=== PATIENT | female | born 1950 | race Caucasian/White ===

== ENCOUNTER 2017-09-20 15:53 | Emergency (ER) | payer MEDICARE ==
[2017-09-20 16:10] VITALS: BP 133/57
--- NOTE | 2017-09-20 16:45 | XRAY Preliminary Report ---
Exam: XR KNEE 4 VIEW RT IMPRESSION: 1. No acute bony abnormality. 2. Small knee effusion. [facility] SITE ID: [id number]
--- NOTE | 2017-09-20 16:51 | XRAY Report ---
EXAM: RIGHT KNEE RADIOGRAPHY EXAM DATE: 09/20/2017 04:39 PM. CLINICAL HISTORY: Pain after injury yesterday. COMPARISON: None. TECHNIQUE: 4 views. FINDINGS: Bones: Normal. No fractures or bone lesions. Joints: Small effusion. Joint compartments normal caliber without bony reactive changes. Soft Tissues: Normal. No soft tissue swelling. IMPRESSION: 1. No acute bony abnormality. 2. Small knee effusion. [facility] Referring Provider Line: [phone] SITE ID: [id number]
[2017-09-20] MEDS ORDERED: ACETAMINOPHEN 325 MG TABLET PO STA (17:24)
--- NOTE | 2017-09-20 17:27 | ED Physician Documentation ---
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 she was chasing her dog and jumped over a dithc and hurt her R knee knee is painful swollen and giving out also some pain to RUE but better now no head or neck injury applies ice cannot take NSAIDS 2/2 CKD Review of Systems Musculoskeletal: reports: Joint pain PD PAST MEDICAL HISTORY - Past Medical History Past Medical History: Yes Cardiovascular: Hypertension, Coronary artery disease, Peripheral Vascular Disease Endocrine/Autoimmune: Type 2 diabetes : Other Other Past Medical History: Stg 3 CKD - Past Surgical History Past Surgical History: No - Allergies Allergies/Adverse Reactions: Allergies Allergy/AdvReac Type Severity Reaction Status Date / Time No Known Drug Allergies Allergy Verified 09/20/17 16:06 - Social History Does the pt smoke?: No Smoking Status: Never smoker Does the pt drink ETOH?: No Does the pt have substance abuse?: No - Immunizations Immunizations are current?: Yes PD ED PE NORMAL - Vitals Vital signs reviewed: Yes - Cardiac Cardiac: RRR - Respiratory Respiratory: Clear bilaterally - Extremities Extremities: Other (RLE - _ knee effusion, no quad or patellar tendon TTP, patella NT, mild nuris jt line TTP, no medial or lateral laxity, some ACL laxity, pain and effusion limit meniscal testing) - Neuro Neuro: No motor deficit, No sensory deficit Results - Vitals Vitals: Vital Signs - 24 hr 09/20/17 16:01 Temperature 37.1 C Heart Rate 82 Respiratory 16 Rate Blood Pressure 133/57 H O2 Saturation 98 - Rads (name of study) knee Radiology: See rad report (no bony abn, + effusion) Departure - Departure Disposition: 01 Home, Self Care Clinical Impression: Knee injury Qualifiers: Encounter type: initial encounter Laterality: right Qualified Code(s): S89.91XA - Unspecified injury of right lower leg, initial encounter Condition: Good Instructions: ED Knee Injury Cruciate Ligament Follow-Up: [facility] [Provider Group] Comments: The xray is fine Based on your exam I am concerned you may have injured the anterior cruciate ligament Please wear the brace we gave you and follow up with orthopedics Ice and tylenol as needed for the pain
== END 2017-09-20 17:45 | disposition home or self-care (01) ==
LOC: ED 15:53
DX: S89.91XA Unspecified injury of right lower leg, initial encounter (principal); M25.461 Effusion, right knee; W22.09XA Striking against other stationary object, initial encounter; Y93.K1 Activity, walking an animal; I25.10 Atherosclerotic heart disease of native coronary artery without angina pectoris; E11.22 Type 2 diabetes mellitus with diabetic chronic kidney disease; I12.9 Hypertensive chronic kidney disease with stage 1 through stage 4 chronic kidney disease, or unspecified chronic kidney disease; N18.3 Chronic kidney disease, stage 3 (moderate)
CPT/HCPCS: 99282; 99283

== ENCOUNTER 2017-10-01 15:26 | Outpatient (CLI) | payer MEDICARE ==
--- NOTE | 2017-10-02 10:44 | CT Report ---
EXAM: RIGHT KNEE CT WITHOUT CONTRAST EXAM DATE: 10/01/2017 03:52 PM. CLINICAL HISTORY: POSSIBLE FRACTURE/GUIDE TO APPROPRIATE TREATMENT. COMPARISON: Right knee 4 views 09/20/2017.. TECHNIQUE: Thin-section axial images were acquired of the knee without contrast. Post-processing: Cor onal and sagittal reformats. Other: None. In accordance with CT protocol optimization, one or more of the following dose reduction techniques w ere utilized for this exam: automated exposure control, adjustment of mA and/or KV based on patient s ize, or use of iterative reconstructive technique. FINDINGS: Bones: 1. Depressed comminuted fracture lateral proximal tibia metaphysis and epiphysis posterior aspect of the lateral tibial plateau measuring 1.9 cm in AP dimension and 2.1 cm in transverse dimension with 3 mm plateau fracture depression. 2. Nondisplaced fracture anterior aspect of fibular head. Joints: The joint spaces are preserved. No calcified loose bodies. No large effusion. Musculature: Normal. No fatty atrophy. Other: Negative for ACL disruption. Small patellar recess of fluid collection. Small fluid collection gastrocnemius semimembranosus bursa 3.1 cm in height and 1.3 x 2.4 cm in transverse dimension. IMPRESSION: 1. Comminuted depressed fracture posterior aspect lateral tibial plateau epiphysis and metaphysis 1.9 cm in AP dimension and 2.1 cm in transverse dimension with 3 mm depression. 2. Nondisplaced fracture anterior fibula head. Critical result: Findings phoned to Dr. Domingo 1033 hrs. On 10/01/2017. [facility] Referring Provider Line: [phone] SITE ID: [id number]
== END 2017-10-01 15:27 | disposition home or self-care (01) ==
LOC: DI 15:26
PROVIDERS: ATTEND Orthopaedic Surgery
DX: S82.191A Other fracture of upper end of right tibia, initial encounter for closed fracture (principal); S82.831A Other fracture of upper and lower end of right fibula, initial encounter for closed fracture

== ENCOUNTER 2017-10-30 08:00 | Outpatient (CLI) | payer MEDICARE ==
[2017-10-30 17:49] LABS: ALBUMIN/GLOBULIN RATIO 1.1 (1.0-2.2); ALKALINE PHOSPHATASE 60 IU/L (42-121); ALT ALANINE AMINOTRANSFERASE 14 IU/L (10-60); AST ASPARTATE AMINOTRANSFERASE 18 IU/L (10-42); BILIRUBIN,TOTAL 0.8 mg/dL (0.2-1.0); BUN - BLOOD UREA NITROGEN 18 mg/dL (6-20); CALCIUM 9.9 mg/dL (8.5-10.3); CARBON DIOXIDE - CO2 29 mmol/L (21-32); CHLORIDE 102 mmol/L (101-111); CHOL/HDL RATIO 2.7 (<4.4); CHOLESTEROL 144 mg/dL; CREATININE 1.2 mg/dL (0.4-1.0); GFR - MDRD 45 (>89); GLUCOSE 82 mg/dL (70-100); HDL CHOLESTEROL 53 mg/dL; LDL CHOLESTEROL,CALCULATED 77 mg/dL; LDL/HDL RATIO 1.5 (<4.4); SODIUM 139 mmol/L (135-145); TOTAL PROTEIN 7.6 g/dL (6.7-8.2); VLDL CHOLESTEROL 14 mg/dL
[2017-10-30 18:37] LABS: HB2 TOTAL 14.1 g/dL; HEMOGLOBIN A1C 0.58 g/dL; HEMOGLOBIN A1C % 5.9 % (4.6-6.2)
== END 2017-10-30 08:01 | disposition home or self-care (01) ==
LOC: LAB.F 08:00
PROVIDERS: ATTEND Internal Medicine
DX: E11.40 Type 2 diabetes mellitus with diabetic neuropathy, unspecified (principal)
CPT/HCPCS: 36415; 80053; 80061; 82043; 83036; 83721; 84443

== ENCOUNTER 2018-07-11 14:04 | Outpatient (CLI) | payer MEDICARE ==
[2018-07-11 14:52] LABS: CREATININE 1.3 mg/dL (0.4-1.0)
[2018-07-11] MEDS ORDERED: IOVERSOL 320 100 ML VIAL IVP ONE ×2 (15:09→17:11)
[2018-07-11] MEDS ORDERED: IOVERSOL 320 50 ML VIAL ONE (15:09)
[2018-07-11] MEDS ORDERED: IOVERSOL 320 50 ML VIAL PO ONE (17:11)
--- NOTE | 2018-07-14 09:44 | CT Report ---
Reason: LEG CRAMPING Procedure Date: 07/11/2018 Accession Number: [id number] / [id number] Procedure: CT - ANGIO LOWER EXT W/WO - B/L CPT Code: FULL RESULT: EXAM: CT ANGIOGRAM ABDOMEN AND PELVIS, WITH BILATERAL LOWER EXTREMITY ARTERY RUNOFF EXAM DATE: 07/11/2018 03:51 PM CLINICAL HISTORY: Leg cramping. COMPARISON: LOWER EXTREMITY ANGIO BI W/WO 07/11/2018 3:36 PM. TECHNIQUE: Routine helical imaging was performed through the abdomen, pelvis and bilateral lower extremities in arterial phase. IV Contrast: 120 mL Omnipaque 350, no reaction. Reconstructions: Coronal, sagittal, and 3D MIP reconstructions were performed. In accordance with CT protocol optimization, one or more of the following dose reduction techniques were utilized for this exam: automated exposure control, adjustment of mA and/or KV based on patient size, or use of iterative reconstructive technique. FINDINGS: Vascular: The aorta at the diaphragmatic hiatus is somewhat tortuous, measuring 1.5 cm. First several images through the lower chest show significant mitral valve annulus calcification. Aorta above the level of the renal arteries is 1.5 cm. Aorta at the bifurcation is 1.3 cm. Left common iliac is 0.7 cm, right common iliac is 0.7 cm. Left common femoral is 0.5 cm, right common femoral is 0.5 cm. On the right side, the deep femoral is patent, superficial femoral is occluded for a distance of about 24.4 cm where the popliteal is reconstituted via numerous muscular branches. Below the knee, the tibioperoneal trunk is intact, arising to the anterior tibial and peroneal, posterior tibial is not seen in the upper calf. In the lower calf, a small vascular channel arises from the peroneal and supplies a faint amount of contrast material to the posterior tibial at the ankle. On the left side, atherosclerotic narrowing is present in the proximal 4-5 cm of the SFA, there is multifocal greater than 75% narrowing to the level of the mid thigh where there is occlusion of the SFA over a distance of about 9.4 cm, with reconstitution below the adductor canal via numerous muscular collaterals. Popliteal, tibioperoneal trunk have a normal appearance, there is low origin of the posterior tibial from the peroneal. In the distal third of the calf, contrast material is noted in the posterior tibial but not in the peroneal or anterior tibial. Celiac axis shows about 50% stenosis at the origin. SMA is normal. Left colic also unremarkable. 2 right renal arteries are present, no significant origin stenosis. Single left renal artery also noted, no stenosis. Abdomen: Small amount of dependent density is seen in the right lung base. Numerous gallstones are seen. Series 4 image 53. Adrenal glands, pancreas, kidneys and spleen are unremarkable. Pelvis: In the pelvis, no masses are noted. Uterus and adnexa appear age appropriate. Bones show no fractures or erosive changes. No destructive changes are noted. Extremities: In the right lower leg, there is fatty atrophy of the medial head of the gastrocnemius and soleus musculature. IMPRESSION: 1. No aneurysm, dissection or leak. 2. 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 Segmental occlusion of vessels below the knee as described. 2. On the left side, occlusion of the midportion of the SFA secondary to atherosclerotic disease. Reconstitution above the knee, the popliteal arises in the lower leg with segmental occlusions as described. 3. Visceral organs show no masses or nodules. No marked stenosis; there is at least 50% stenosis at the origin of the celiac, however. 4. Numerous gallstones.
== END 2018-07-11 14:05 | disposition home or self-care (01) ==
LOC: DI 14:04
PROVIDERS: ATTEND Family Medicine
DX: I70.201 Unspecified atherosclerosis of native arteries of extremities, right leg (principal); I77.1 Stricture of artery; K80.20 Calculus of gallbladder without cholecystitis without obstruction
CPT/HCPCS: 36415; 73706; 82565; Q9967

== ENCOUNTER 2019-07-07 13:06 | Outpatient (CLI) | payer MEDICARE ==
[2019-07-07 13:31] LABS: MUDS CUTOFF CONCENTRATIONS CUTOFF CONC BELOW:
[2019-07-07 13:41] LABS: CREATININE 1.9 mg/dL (0.4-1.0)
[2019-07-07 13:50] LABS: AMPHETAMINE SCREEN,URINE NEGATIVE (NEGATIVE); BENZODIAZEPINES SCREEN, URINE NEGATIVE (NEGATIVE); COCAINE SCREEN URINE NEGATIVE (NEGATIVE); METHADONE SCREEN, URINE POSITIVE (NEGATIVE); METHAMPHETAMINES SCREEN, URINE NEGATIVE (NEGATIVE); OPIATE SCREEN, URINE NEGATIVE (NEGATIVE); OXYCODONE SCREEN, URINE NEGATIVE (NEGATIVE); PROPOXYPHENE SCREEN, URINE NEGATIVE (NEGATIVE); TRICYCLIC ANTIDEPRESSANT,URINE NEGATIVE (NEGATIVE)
[2019-07-07 13:54] LABS: HB2 TOTAL 13.3 g/dL; HEMOGLOBIN A1C 0.88 g/dL; HEMOGLOBIN A1C % 8.2 % (4.6-6.2)
== END 2019-07-07 13:07 | disposition home or self-care (01) ==
LOC: LAB 13:06
PROVIDERS: ATTEND Family Medicine
DX: N28.9 Disorder of kidney and ureter, unspecified (principal); Z51.81 Encounter for therapeutic drug level monitoring; Z79.891 Long term (current) use of opiate analgesic
CPT/HCPCS: 36415; 80306; 82565; 83036; 84132; 84295

== ENCOUNTER 2020-02-16 15:37 | Outpatient (CLI) | payer MEDICARE ==
[2020-02-16 20:33] LABS: ALBUMIN 4.3 g/dL (3.2-5.5); ALBUMIN/GLOBULIN RATIO 1.2 (1.0-2.2); BILIRUBIN,TOTAL 0.8 mg/dL (0.2-1.0); CALCIUM 9.7 mg/dL (8.5-10.3); CREATININE 1.9 mg/dL (0.4-1.0); HEMOGLOBIN A1c% 8.5 % (4.27-6.07); TOTAL PROTEIN 7.8 g/dL (6.7-8.2)
== END 2020-02-16 15:38 | disposition home or self-care (01) ==
LOC: LAB.S 15:37
PROVIDERS: ATTEND Family Medicine
DX: Z51.81 Encounter for therapeutic drug level monitoring (principal); Z79.899 Other long term (current) drug therapy
CPT/HCPCS: 36415; 80053; 82043; 82570; 83036

== ENCOUNTER 2020-06-16 14:13 | Outpatient (CLI) | payer MEDICARE | END 2020-06-16 23:59 | disposition critical access hospital (66) | LOC: EMS 14:13 | PROVIDERS: ATTEND Emergency Medicine | DX: M79.604 Pain in right leg (principal) | CPT/HCPCS: A0425; A0427 ==

== ENCOUNTER 2020-06-16 14:53 | Inpatient (IN) | payer MEDICARE ==
[2020-06-16] MEDS ORDERED: HYDROmorphone 1 MG/ML CARPUJECT IVP STA ×2 (14:57→18:10)
[2020-06-16] MEDS ORDERED: SODIUM CHLORIDE 0.9% 1,000 ML IV STA (14:57)
[2020-06-16] MEDS ORDERED: ceFAZolin 2 GM/50 ML 2 GM/50 ML BAG IV ONE (14:58)
--- NOTE | 2020-06-16 15:00 | ED Physician Documentation ---
PD HPI LOWER EXT INJURY - Stated complaint Stated Complaint: R LEG INJ - History obtained from History obtained from: Patient - History of Present Illness PD HPI LOW EXT INJURY LOCATION: Right, Ankle Type of injury: Fall Where injury occurred: Home Timing - onset: Today - Additional information Additional information: 69-year-old woman with type 2 diabetes on an insulin pump. Not anticoagulated. She was reaching over her head in the kitchen and got dizzy, it sounds like her foot got stuck under something and she fell sustaining an isolated right ankle injury that is likely an open fracture. No other injuries. No loss of consciousness. Pain is severe despite receiving 2 mg of morphine on route. Review of Systems Ten Systems: 10 systems reviewed and negative Constitutional: reports: Reviewed and negative Throat: reports: Reviewed and negative Cardiac: reports: Reviewed and negative Respiratory: reports: Reviewed and negative PD PAST MEDICAL HISTORY - Past Medical History Past Medical History: Yes Cardiovascular: Hypertension, Coronary artery disease, Peripheral Vascular Disease Endocrine/Autoimmune: Type 2 diabetes : Other - Past Surgical History Past Surgical History: No - Present Medications Home Medications: Ambulatory Orders Medication Instructions Recorded Confirmed DULoxetine [Cymbalta] 60 mg PO DAILY 06/16/20 06/16/20 Diltiazem HCl [Diltiazem 12Hr ER] 1 tab PO DAILY 06/16/20 06/16/20 Gabapentin [Neurontin] 600 mg PO HS 06/16/20 06/16/20 Losartan/Hydrochlorothiazide 1 tab PO DAILY 06/16/20 06/16/20 [Hyzaar 100-12.5 Tablet] Methadone 5 mg PO BID 06/16/20 06/16/20 Rosuvastatin Calcium [Crestor] 40 mg PO DAILY 06/16/20 06/16/20 Spironolactone [Aldactone] 1 tab PO DAILY 06/16/20 06/16/20 clonazePAM [Clonazepam] 0.5 mg PO DAILY 06/16/20 06/16/20 traZODone [Desyrel] 1 tab PO PRN PRN 06/16/20 06/16/20 - Allergies Allergies/Adverse Reactions: Allergies Allergy/AdvReac Type Severity Reaction Status Date / Time No Known Drug Allergies Allergy Verified 06/16/20 15:01 - Social History Does the pt smoke?: No Smoking Status: Never smoker Does the pt drink ETOH?: No Does the pt have substance abuse?: No - Family History Family history: reports: Non contributory - Immunizations Immunizations are current?: Yes PD ED PE NORMAL - Vitals Vital signs reviewed: Yes - General General: Alert and oriented X 3, No acute distress - HEENT HEENT: PERRL, EOMI - Neck Neck: Supple, no meningeal sign, No bony TTP - Cardiac Cardiac: RRR, No murmur - Respiratory Respiratory: No respiratory distress, Clear bilaterally - Abdomen Abdomen: Normal bowel sounds, Soft, Non tender - Back Back: No CVA TTP, No spinal TTP - Derm Derm: Normal color, Warm and dry - Extremities Extremities: Other (There is a deformity above the right ankle that is quite tender. On the medial side there is a small laceration likely consistent with an open fracture. There is also a scrape on the medial side of the right great toe. Pedal pulses and sensation are normal.) - Neuro Neuro: Alert and oriented X 3, Normal speech Results - Vitals Vitals: Vital Signs - 24 hr 06/16/20 06/16/20 15:01 15:27 Temperature 36.5 C Heart Rate 71 70 Respiratory 16 16 Rate Blood Pressure 110/44 L 110/44 L O2 Saturation 97 99 Oxygen O2 Source Room air - EKG (time done) 1505 Rate: Rate (enter#) (74) Rhythm: NSR (w pvc) [place]: Normal Intervals: Normal OK QRS: Normal Ischemia: Non specific changes Computer interpretation: Agree with computer - Labs Labs: Laboratory Tests 06/16/20 06/16/20 06/16/20 15:15 15:15 15:15 WBC 13.1 H RBC 4.02 L Hgb 11.8 L Hct 37.3 MCV 92.8 MCH 29.4 MCHC 31.6 L RDW 14.4 Plt Count 223 MPV 9.0 PT 12.0 INR 1.1 Sodium 137 Potassium 4.1 Chloride 92 L Carbon Dioxide 26 Anion Gap 19.0 H BUN 38 H Creatinine 2.5 H Estimated GFR (MDRD) 19 L Glucose 160 H Calcium 9.7 PD MEDICAL DECISION MAKING - ED course ED course: 69-year-old woman with a ground-level fall, mechanical. She was dizzy but not syncopal. She has an open fracture of the distal right tib-fib. She was administered Ancef and tetanus. Pain was controlled with narcotics here. Spoke with Dr. Mccurdy, our on-call orthopedist who will take her to the OR today, we initially spoke around 3:35 PM. He requested that we consult the hospitalist for medical management of comorbidities and I spoke with Dr. Ryan at 3:40 PM. Note made that her kidney function is a little worse than baseline. Her baseline creatinine is about 1.9.. 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
[2020-06-16 15:21] LABS: BASOPHILS % (AUTO) 0.5 %; EOSINOPHILS % (AUTO) 0.6 %; HCT - HEMATOCRIT 37.3 % (37.0-47.0); HGB - HEMOGLOBIN 11.8 g/dL (12.0-16.0); LYMPHOCYTES % (AUTO) 38.6 %; MEAN CORPUSCULAR HEMOGLOBIN 29.4 pg (27.0-31.0); MEAN CORPUSCULAR HGB CONC 31.6 g/dL (32.0-36.0); MEAN CORPUSCULAR VOLUME 92.8 fL (81.0-99.0); MONOCYTES % (AUTO) 5.6 %; NEUTROPHILS % (AUTO) 53.9 %; PLT - PLATELET COUNT 223 10^3/uL (130-450); RED BLOOD COUNT 4.02 10^6/uL (4.20-5.40); RED CELL DISTRIBUTION WIDTH 14.4 % (12.0-15.0); WHITE BLOOD COUNT 13.1 x10^3/uL (4.8-10.8)
[2020-06-16 15:23] LABS: ABNORMAL LYMPHS % (MANUAL) 0 %; BAND NEUTROPHILS % (MANUAL) 0 %
[2020-06-16 15:28] LABS: INR 1.1 (0.8-1.2)
[2020-06-16 15:34] LABS: CALCIUM 9.7 mg/dL (8.5-10.3); CREATININE 2.5 mg/dL (0.4-1.0); POTASSIUM 4.1 mmol/L (3.5-5.0)
[2020-06-16] MEDS ORDERED: TETANUS/DIPHTHERIA/PERTUSSIS 0.5 ML SYRINGE IM ONE (15:35)
[2020-06-16 15:53] LABS: LYMPHOCYTES # (MANUAL) 4.6 10^3/uL (1.5-3.5); LYMPHOCYTES % (MANUAL) 35 %; MONOCYTES # (MANUAL) 0.4 10^3/uL (0.0-1.0); NEUTROPHILS # (MANUAL) 8.1 10^3/uL (1.5-6.6)
[2020-06-16 15:54] LABS: DIFFERENTIAL COMMENT MANUAL DIFFERENTIAL; PLATELET ESTIMATE, MANUAL NORMAL (130-450,000) (NORMAL); PLATELET MORPHOLOGY NORMAL APPEARANCE (NORMAL); RBC MORPHOLOGY (MULTIPLE) NORMAL APPEARANCE (NORMAL); WBC MORPHOLOGY (MULTIPLE) NORMAL APPEARANCE (NORMAL)
--- NOTE | 2020-06-16 15:55 | XRAY Report ---
PROCEDURE: Ankle 2 View RT INDICATIONS: Ankle Injury TECHNIQUE: 2 views of the ankle were acquired. COMPARISON: None. FINDINGS: Severely comminuted fractures of the distal tibia and fibula. There is lateral angulation of the malissa nant distal fragments. Anatomic alignment seen at the tibiotalar joint. Soft tissues: No tibiotalar joint effusion. Achilles tendon appears normal. Plantar calcaneal spurring. IMPRESSION: Severely comminuted and angulated fractures of the distal tibia and fibula. Reviewed by: Conor Narvaez MD on 06/16/2020 3:54 PM PST Approved by: Conor Narvaez MD on 06/16/2020 3:54 PM PST Station ID: [id number]
--- NOTE | 2020-06-16 16:03 | CONSULTATION NOTE ---
Referring Provider Name of Referring Provider:: Yan Mccurdy MD Consult Date: 06/16/20 Chief Complaint - Chief Complaint Chief Complaint: fall with ankle fracture History of Present Illness - Admitted From Admitted From:: Home via ER - History Obtained From Records Reviewed: [facility] History obtained from: Dr. Bar and patient Exam Limitations: none. - History of Present Illness HPI Comment/Other: This is a white female in her early 70s whose PMH is significant for hypertension, arteriosclerotic disease of the aorta, bilateral carotid stenosis as well as type 2 diabetes mellitus. She also has stage III chronic kidney disease. She has never had an VA or CHF. An Echo in 2017 showed nml LVEF, no wall motion abnormalities, mild LAE and mild . She has chronic pain syndrome and takes methadone on a regular basis to avoid opiates, and also has atrophy of her right calf. She was standing in her kitchen and reaching for something over her head. The movement of tilting her head back and looking up made her feel dizzy. Her right big toe and foot foot seem to lodge under a piece of cabinet toe kick and between the dizziness and the foot getting stuck, she could not move her leg fast enough and she fell. She had immediate pain in her right ank le and was brought to the emergency room via EMS. Initial evaluation had her at 97% saturation room air. Respirations 16. Blood pressure 110/44. Heart rate 71. She was seen by ER MD were physical exam was essentially normal with heart and lungs and abdomen but she had deformity of her left ankle. X-ray confirmed an open fracture of the distal right tib-fib. Her baseline creatinine is usually 1.3 and she is 2.5 today. Hemoglobin is 11.8. No previous hemoglobins in the chart. INR is 1.1. Random glucose 160. EKG shows sinus rhythm with PVC. Early R wave progression in the anterior leads but otherwise no acute changes. On review of systems she denies syncope, headache, focal neurological deficits. She denies chest pain, palpitations, orthopnea, edema. There is been no recent change in her cardiovascular endurance. She denies coughing, wheezing, congestions. She denies fever, chills, sore throat. Her primary care provider is Socorro Delgadillo MD at [facility] in [facility]. Office fax [phone], and the office phone number is [phone]. She was unable to come to the phone but one of her partners was button breaker , , and was able to review her office chart for me. History - Past Medical History Cardiovascular: reports: Hypertension, Peripheral Vascular Disease (bilateral carotid stenosis), Other (arteriosclerotic disease of aorta and coronary arteries seen on scans but no VA or angina) Neuro: reports: Peripheral neuropathy Endocrine/Autoimmune: reports: Type 2 diabetes (last A1c was 8.5% in February and she is due for labs) CHIEF RISK OFFICER: reports: Other () : reports: Other Musculoskeletal: reports: Chronic back pain, Other (chronic atrophy right calf) MRSA Hx?: No - Past Surgical History Ortho: reports: Other (fx of knee 2018 located above current fx ) - Family & Social History Family History Comment/Other: Mom at age 45 of a massive heart attack. Dad approximately 65 complications of diabetes. 5 (1/2) sisters that she says are all healthy without DM, HTN, HPL, CAD. 2 children. One son has neurofibromatosis. Living arrangement: At home Living Situation: With spouse/s.o. Social History Notes: From [place]. Considers herself in [facility] daughter. 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 He is 20 years older than her. She started getting worried about what would be like to take care of an elderly in [place] so [place] [id number] [place] She regrets moving back but she really misses her house in [place]. Her is in fabulous health. Better than her. She started smoking at the age of 14 and smoked about a pack a week until the age of 38. She has no history of alcohol abuse. She has no history of recreational substance abuse. - Substance History Use: Uses substance without health or social issues: NONE Abuse: Recurrent use of substance despite neg consequences: NONE Dependence: Experiences withdrawal or developed tolerances: NONE - POLST Patient has POLST: No POLST Status: Full Code Meds/Allgy - Home Medications Home Medications: Ambulatory Orders Medication Instructions Recorded Confirmed DULoxetine [Cymbalta] 60 mg PO DAILY 06/16/20 06/16/20 Diltiazem HCl [Diltiazem 12Hr ER] 1 tab PO DAILY 06/16/20 06/16/20 Gabapentin [Neurontin] 600 mg PO HS 06/16/20 06/16/20 Losartan/Hydrochlorothiazide 1 tab PO DAILY 06/16/20 06/16/20 [Hyzaar 100-12.5 Tablet] Methadone 5 mg PO BID 06/16/20 06/16/20 Rosuvastatin Calcium [Crestor] 40 mg PO DAILY 06/16/20 06/16/20 Spironolactone [Aldactone] 1 tab PO DAILY 06/16/20 06/16/20 clonazePAM [Clonazepam] 0.5 mg PO DAILY 06/16/20 06/16/20 traZODone [Desyrel] 1 tab PO PRN PRN 06/16/20 06/16/20 - Allergies Allergies/Adverse Reactions: Allergies Allergy/AdvReac Type Severity Reaction Status Date / Time No Known Drug Allergies Allergy Verified 06/16/20 15:01 Review of Systems - Constitutional Constitutional: denies: Weakness, Poor appetite, Diaphoresis, Night sweats, Weight gain, Weight loss - Eyes Eyes: denies: Pain, Irritation, Amaurosis, Blurred vision, Vision loss, Dipolpia - Ears, Nose & Throat Ears, Nose & Throat: reports: Hearing loss. denies: Hearing aids, Tinnitus, Vertigo, Nasal pain, Dentures, Sore throat - Cardiovascular Cariovascular: reports: Lightheadedness (For several weeks now. She cannot say why. She has not told her primary care provider about that yet.), Other (She has the same cardiopulmonary endurance that she has had for 2 years. No change.). denies: Irregular heart rate, Palpitations, Chest pain, Edema, Syncope, Exertional dyspnea, Decr. exercise tolerance - Respiratory Respiratory: denies: Cough, Sputum production, Wheezing, Orthopnea, SOB at rest, SOB with exertion - Gastrointestinal Gastrointestinal: reports: Other (She only eats about once a day. She said that she checked her sugars this morning and they were about 112. She did take her medications.). denies: Abdominal pain, Abdominal distention, Diarrhea, Change in bowel habits - Genitourinary Genitourinary: reports: Incontinence. denies: Dysuria, Frequency, Urgency, Flank pain, Nocturia - Musculoskeletal Musculoskeletal: reports: Other (Chronic mild joint pain of hands and feet from osteoarthritis. Mild joint pain in the right knee where she had her previous fracture and fall in 2018.) - Integumentary Integumentary: denies: Rash, Pruritis - Neurological Neurological: reports: Focal weakness (Right leg, chronic, for years), Numbness (Chronic of her feet. Pretty dense neuropathy. She has had severe pain because of neuropathy was chronic right calf shrinkage. Because of that she was on opioids, and was transitioned to methadone. Her primary care provider is gradually reducing her methadone.). denies: General weakness, Headache, Dizziness, Memory problems, Seizures - Psychiatric Psychiatric: denies: Depression, Anxiety, Suicidal Exam - Vital Signs Reviewed Vital Signs: Yes Vital Signs: Vital Signs x48h Temp Pulse Resp BP Pulse Ox 06/16/20 15:27 70 16 110/44 L 99 06/16/20 15:01 36.5 C 71 16 110/44 L 97 - Physical Exam General Appearance: positive: No acute distress, Alert, Other (Pain in her right ankle is controlled, but she is very anxious, shocked about all this and cannot believe this is happening. Very talkative, nonstop.) Eyes Bilateral: positive: PERRL, EOMI ENT: positive: Dry mucous membranes (But she says she has been eating which she always does. Nothing new.), Other (Is a dry scaling along her jawline on both sides of her face. When I ask if she has seborrhea she says no. Using a mirror she looks and realizes that her face cream has dried into a scaling type of peeling on both sides of her jaw. She does have mild seborrhea.) Neck: positive: No JVD, Carotid bruit Respiratory: positive: No respiratory distress. negative: Wheezes, Rales, Rhonchi Cardiovascular: positive: Regular rate & rhythm, Systolic murmur. negative: Gallop/S4, Friction rub Peripheral Pulses: positive: 0 (Neither foot has dorsalis pedis or posterior tibial) Abdomen: positive: Non-tender, No organomegaly, Nml bowel sounds, No distention Skin: positive: Warm, Dry, Pallor. negative: Diaphoresis Extremities: positive: Other (Severe onychomycosis both feet. Left second toenail is gone. She has index finger DIP deformities. Early hammertoe de formities both feet. The right ankle is externally rotated and the foot is lying flat on the pillow where as the right leg is in normal anterolateral position. The right great to) Neurologic/Psychiatric: positive: Oriented x3, CN's nml (2-12), Motor nml. negative: Sensation nml (Moderate loss of sensation both feet up to mid tib-fib area) Conclusion/Plan - Diagnosis Diagnosis: Right comminuted fractures of the distal tibia and fibula, severe. This is with a mechanical fall, no evidence of syncope by review of systems. With her risk factors of age, hypertension, acute kidney injury, diabetes, and s igns of peripheral vascular disease make her surgical risk calculator for score at 5.4% serious complication, 6.8% any complication. She has a high risk of needing to be discharged to a nursing or rehab facility. Prior to surgery, I would recommend hydrating her with 1 to 2 L. At this time blood pressure is controlled, she is afebrile. Routine preop antibiotics. Will monitor her glucose after surgery. Since she already has chronic pain syndrome, she may have destabilization of current pain control with the addition of this new ankle fracture. In the postoperative setting we will continue her methadone, gabapentin, losartan, diltiazem, trazodone, Cymbalta, clonazepam. - Lab Results Lab results reviewed: Yes Fish Bones: 06/16/20 15:15 06/16/20 15:15 - Diagnostic Imaging Results Diagnostic Imaging Results: positive: Final report reviewed Diagnostic Imaging Results Comments: Right ankle films show severely comminuted fracture of the distal tibia and fibula. Lateral angulation of the dominant distal fragments. Achilles tendon appears normal. Plantar calcaneal spurring seen. - EKG Results EKG Interpreted Independently: No EKG Comparison: No prior EKG EKG Findings: EKG with normal sinus rhythm, no acute ST-T wave changes. A single PVC
[2020-06-16 16:34] LABS: B. PARAPERTUSSIS- RESP PCR PAN NOT DETECTED; B. PERTUSSIS- RESP PCR PANEL NOT DETECTED; C. PNEUMONIAE- RESP PCR PANEL NOT DETECTED; CORONAVIRUS 229E-RESP PCR NOT DETECTED; CORONAVIRUS HKU1-RESP PCR NOT DETECTED; CORONAVIRUS NL63-RESP PCR NOT DETECTED; CORONAVIRUS OC43-RESP PCR NOT DETECTED; HUMAN METAPNEUMOVIRUS NOT DETECTED; INFLUENZA A- RESP PCR PANEL NOT DETECTED; INFLUENZA B - RESP PCR PANEL NOT DETECTED; M. PNEUMONIAE- RESP PCR PANEL NOT DETECTED; PARAINFLUENZA VIRUS 1 NOT DETECTED; PARAINFLUENZA VIRUS 2 NOT DETECTED; PARAINFLUENZA VIRUS 3 NOT DETECTED; PARAINFLUENZA VIRUS 4 NOT DETECTED; RHINOVIRUS/ENTEROVIRUS NOT DETECTED; RSV- RESP PCR PANEL NOT DETECTED; SARS-CoV-2 -RESP PCR PANEL NOT DETECTED
[2020-06-16] MEDS ORDERED: ROPIVACAINE 0.5% PF 20 ML AMPULE ONE (16:38)
[2020-06-16] MEDS ORDERED: MIDAZOLAM 2 MG/2 ML VIAL ONE (17:07)
[2020-06-16] MEDS ORDERED: PROPOFOL 200 MG/20 ML VIAL IVP ONE (17:07)
[2020-06-16] MEDS ORDERED: LIDOCAINE-MPF 2% 5 ML VIAL ONE (17:07)
[2020-06-16] MEDS ORDERED: fentaNYL 100 MCG/2 ML VIAL ONE (17:07)
--- NOTE | 2020-06-16 17:33 | ANESTHESIA ---
Pre-Anesthesia VS, & Labs - Diagnosis Diagnosis Right comminuted fractures of the distal tibia and fibula, severe. This is with a mechanical fall, no evidence of syncope by review of systems. With her risk factors of age, hypertension, acute kidney injury, diabetes, her surgical risk calculator for next clip score is 5.4% serious complication, 6.8% any complication. She has a high risk of needing to be discharged to a nursing or rehab facility. Prior to surgery, I would recommend hydrating her with 1 to 2 L. At this time blood pressure is controlled, she is afebrile. Routine preop antibiotics. Will monitor her glucose after surgery. Since she already has chronic pain syndrome, she may have destabilization of current pain control with the addition of this new ankle fracture. In the postoperative setting we will continue her methadone, gabapentin, losartan, diltiazem, trazodone, Cymbalta, clonazepam. - Procedure ORIF R tib/fib Vital Signs: Temp Pulse Resp BP Pulse Ox 36.5 C 78 16 124/51 L 98 06/16/20 15:01 06/16/20 17:29 06/16/20 17:29 06/16/20 17:29 06/16/20 17:29 Height: 5 ft 7 in Weight (kg): 89.3 kg Body Mass Index: 30.8 BMI Classification: Obese - NPO >8 hours - Is Patient ?: No - Lab Results Current Lab Results: Laboratory Tests 06/16/20 15:15: Sodium 137, Potassium 4.1, Chloride 92 L, Carbon Dioxide 26, Anion Gap 19.0 H, BUN 38 H, Creatinine 2.5 H, Estimated GFR (MDRD) 19 L, Glucose 160 H, Calcium 9.7 06/16/20 15:15: PT 12.0, INR 1.1 06/16/20 15:15: WBC 13.1 H, RBC 4.02 L, Hgb 11.8 L, Hct 37.3, MCV 92.8, MCH 29.4, MCHC 31.6 L, RDW 14.4, Plt Count 223, MPV 9.0, Neut # (Auto) Not Reportable, Lymph # (Auto) Not Reportable, [place] # (Auto) Not Reportable, Eos # (Auto) Not Reportable, Baso # (Auto) Not Reportable, Absolute Nucleated RBC Not Reportable, Total Counted 100, Band Neuts % (Manual) 0, Abnorm Lymph % (Manual) 0, Nucleated RBC % Not Reportable, Neutrophils # (Manual) 8.1 H, Lymphocytes # (Manual) 4.6 H, Monocytes # (Manual) 0.4, Eosinophils # (Manual) 0.0, Basophils # (Manual) 0.0, Differential Comment MANUAL DIFFERENTIAL, WBC Morphology NORMAL APPEARANCE, Platelet Estimate NORMAL (130-450,000), Platelet Morphology NORMAL APPEARANCE, RBC Morph Micro Appear NORMAL APPEARANCE Lab results reviewed: Yes Fish Bones: 06/16/20 15:15 06/16/20 15:15 Home Medications and Allergies Home Medications: Ambulatory Orders DULoxetine [Cymbalta] 60 mg PO DAILY 06/16/20 Diltiazem HCl [Diltiazem 12Hr ER] 1 tab PO DAILY 06/16/20 Gabapentin [Neurontin] 600 mg PO HS 06/16/20 Losartan/Hydrochlorothiazide [Hyzaar 100-12.5 Tablet] 1 tab PO DAILY 06/16/20 Methadone 5 mg PO BID 06/16/20 Rosuvastatin Calcium [Crestor] 40 mg PO DAILY 06/16/20 Spironolactone [Aldactone] 1 tab PO DAILY 06/16/20 clonazePAM [Clonazepam] 0.5 mg PO DAILY 06/16/20 traZODone [Desyrel] 1 tab PO PRN PRN 06/16/20 Active Medications Sodium Chloride (Normal Saline 0.9%) 1,000 mls @ 150 mls/hr IV .Q6H40M STA Stop: 06/16/20 21:36 Last Admin: 06/16/20 15:24 Dose: 150 mls/hr Documented by: DULoxetine [Cymbalta] 60 mg PO DAILY 06/16/20 Diltiazem HCl [Diltiazem 12Hr ER] 1 tab PO DAILY 06/16/20 Gabapentin [Neurontin] 600 mg PO HS 06/16/20 Losartan/Hydrochlorothiazide [Hyzaar 100-12.5 Tablet] 1 tab PO DAILY 06/16/20 Methadone 5 mg PO BID 06/16/20 Rosuvastatin Calcium [Crestor] 40 mg PO DAILY 06/16/20 Spironolactone [Aldactone] 1 tab PO DAILY 06/16/20 clonazePAM [Clonazepam] 0.5 mg PO DAILY 06/16/20 traZODone [Desyrel] 1 tab PO PRN PRN 06/16/20 Allergies/Adverse Reactions: Allergies Allergy/AdvReac Type Severity Reaction Status Date / Time No Known Drug Allergies Allergy Verified 06/16/20 15:01 Anes History & Medical History - Anesthetic History Anesthesia Complications: reports: No previous complications Family history of Anesthesia Complications: Denies Family history of Malignant Hyperthermia: Denies - Medical History Cardiovascular: reports: Hypertension, Peripheral Vascular Disease (bilateral carotid stenosis), Other (arteriosclerotic disease of aorta and coronary arteries seen on scans but no [place] or angina) Urinary: reports: Other Neuro: reports: Peripheral neuropathy Musculoskeletal: reports: Chronic back pain, Other (chronic atrophy right calf) Endocrine/Autoimmune: reports: Type 2 diabetes (last A1c was 8.5% in February and she is due for labs) Smoking Status: Former smoker (quit at 38) History of Cancer?: No - Surgical History Orthopedic: Other (fx of knee 2018 located above current fx ) Exam General: Alert, Oriented x3, Cooperative Dental: Dentures full Upper, Dentures full Lower Mouth Openin Fingerbreadth Neck Mobility: Normal Mallampati classification: II Thyromental Distance: 4-6 cm Respiratory: Lungs clear, Normal breath sounds, No respiratory distress Cardiovascular: Regular rate Neurological: Normal speech Mental/Cognitive Status: Alert/Oriented X3, Normal for patient Cognitive Status: Within normal limits Plan Anesthesia Type: General, Popliteal Block, Adductor Block Regional Block: Per Surgeon's request for Post Op pain control Consent for Procedure(s) Verified and Reviewed: Yes Code Status: Attempt Resuscitation ASA classification: 2-Mild systemic disease Is this case an emergency?: Yes
--- NOTE | 2020-06-16 18:55 | CONSULTATION NOTE ---
DATE OF SERVICE: 06/16/2020 Physician: Yan Mccurdy MD REFERRING PHYSICIAN: Ant Bar M.D., Emergency Room Department. CHIEF COMPLAINT: "My right leg hurts." HISTORY OF PRESENT ILLNESS: Yudy Zaldivar is a 69-year-old female, type 2 diabetic, with a h istory of renal insufficiency who apparently was at home on the day of her admission. She was attemp ting to reach for something overhead and had a dizzy spell. She has been getting intermittent dizzy spells now for some months. She was up on a stool at the time. She lost her balance and fell. As a result of the fall, she noted a bleeding wound in the distal right calf as well as obvious deformity in her leg. She was unable to stand or weight bear. She was taken by ambulance to [facility] where she had her injuries evaluated. She was noted to have a distal tibia-fibula shaft fra cture associated with this wound. No distal weakness or numbness, though she does have baseline wendy pheral neuropathy. The patient did not actually black out. No other injuries noted from this fall. PHYSICAL EXAMINATION: On exam today, the patient does have a medial laceration in the distal calf of the right leg. Her leg is mildly angulated, apexed medially, and externally rotated. The patient i s able to actively move her toes on command. Sensation appears to be intact or at baseline. Good c apillary filling noted. Palpable dorsalis pedis pulse. IMAGING: Review of x-rays that were taken show a slightly comminuted distal tibia-fibula shaft fract ure present. Ankle views appear to show the ankle mortise to be intact. Prior x-rays of the right knee two years ago were reviewed as well and show the minimally depressed l ateral tibia plateau fracture. It did not require any surgical intervention. ASSESSMENT: 1. Grade 1 open right distal tibia-fibula fracture. 2. Type 2 diabetes. 3. Chronic renal insufficiency. 4. History of right minimally depressed lateral tibia plateau fracture. PLAN: After the patient has been evaluated by the medical service and stabilized, we will plan on ta fely her to the operating room to do an irrigation and debridement of her laceration of her open frac ture. We will then proceed to a reduction of her fracture and we will attempt an intramedullary tibi al nailing of the fracture. We may or may not need to add a distal lock to her tibial nail or not. We would like to avoid doing any fibular stabilization if we get adequate stabilization with just the IM nail. This is partly because of where her fracture is, but also because of her diabetes and thei r propensity to be slow healing, getting postoperative infections, etc. The risks and benefits of th e surgery were explained to the patient, including infection, nonunion, malunion, delayed union, neur ovascular compromise, etc. She appears to understand these risks and wishes us to proceed with the s urgery as planned. Answers to her questions were done. The leg was marked and consent signed. TD: 06/16/2020 18:50
--- NOTE | 2020-06-16 18:56 | PROVIDER PROGRESS NOTE ---
Assessment/Plan - Problem List (1) Open fracture of tibia and fibula, shaft Qualifiers: Encounter type: initial encounter Open fracture type: open type I or II Laterality: right Qualified Code(s): S82.201B - Unspecified fracture of shaft of right tibia, initial encounter for open fracture type I or II; S82.401B - Unspecified fracture of shaft of right fibula, initial encounter for open fracture type I or II - Current Meds Current Meds: Current Medications Generic Name Dose Route Start Last Admin Trade Name Freq PRN Reason Stop Dose Admin Sodium Chloride 1,000 mls @ 150 mls/hr 06/16/20 14:57 06/16/20 18:53 Normal Saline 0.9% IV 06/16/20 21:36 Infused .Q6H40M STA Infusion - Lab Result Fish Bone Diagrams: 06/16/20 15:15 06/16/20 15:15 - Other Other Results/Comments: Full note dictated. Patient ready to proceed to OR. Consent signed. Leg marked. - Additional Planning My Orders: My Active Orders 06/16/20 18:16 OR C-Arm Procedure [FL] Routine Objective Vital Signs: Vital Signs - 24 hr 06/16/20 06/16/20 06/16/20 15:01 15:27 16:25 Temperature 36.5 C Heart Rate 71 70 68 Respiratory 16 16 16 Rate Blood Pressure 110/44 L 110/44 L 109/37 L O2 Saturation 97 99 95 06/16/20 06/16/20 06/16/20 17:29 18:17 18:53 Temperature Heart Rate 78 71 Respiratory 16 16 Rate Blood Pressure 124/51 L 118/49 L 117/27 L O2 Saturation 98 95 Oxygen O2 Source Room air I&O (Last 24 Hrs): Intake and Output Totals x24h 06/14/20 06/15/20 06/16/20 23:59 23:59 23:59 Intake Total 572.5 Balance 572.5 - Results Results: Laboratory Results WBC 13.1 x10^3/uL (4.8-10.8) H 06/16/20 15:15 RBC 4.02 10^6/uL (4.20-5.40) L 06/16/20 15:15 Hgb 11.8 g/dL (12.0-16.0) L 06/16/20 15:15 Hct 37.3 % (37.0-47.0) 06/16/20 15:15 MCV 92.8 fL (81.0-99.0) 06/16/20 15:15 MCH 29.4 pg (27.0-31.0) 06/16/20 15:15 MCHC 31.6 g/dL (32.0-36.0) L 06/16/20 15:15 RDW 14.4 % (12.0-15.0) 06/16/20 15:15 Plt Count 223 10^3/uL (130-450) 06/16/20 15:15 MPV 9.0 fL (7.9-10.8) 06/16/20 15:15 Neut # (Auto) Not Reportable 06/16/20 15:15 Lymph # (Auto) Not Reportable 06/16/20 15:15 [place] # (Auto) Not Reportable 06/16/20 15:15 Eos # (Auto) Not Reportable 06/16/20 15:15 Baso # (Auto) Not Reportable 06/16/20 15:15 Absolute Nucleated RBC Not Reportable 06/16/20 15:15 Total Counted 100 06/16/20 15:15 Band Neuts % (Manual) 0 % (0-10) 06/16/20 15:15 Abnorm Lymph % (Manual) 0 % 06/16/20 15:15 Nucleated RBC % Not Reportable 06/16/20 15:15 Neutrophils # (Manual) 8.1 10^3/uL (1.5-6.6) H 06/16/20 15:15 Lymphocytes # (Manual) 4.6 10^3/uL (1.5-3.5) H 06/16/20 15:15 Monocytes # (Manual) 0.4 10^3/uL (0.0-1.0) 06/16/20 15:15 Eosinophils # (Manual) 0.0 10^3/uL (0-0.7) 06/16/20 15:15 Basophils # (Manual) 0.0 10^3/uL (0-0.1) 06/16/20 15:15 Differential Comment MANUAL DIFFERENTIAL 06/16/20 15:15 WBC Morphology NORMAL APPEARANCE (NORMAL) 06/16/20 15:15 Platelet Estimate NORMAL (130-450,000) (NORMAL) 06/16/20 15:15 Platelet Morphology NORMAL APPEARANCE (NORMAL) 06/16/20 15:15 RBC Morph Micro Appear NORMAL APPEARANCE (NORMAL) 06/16/20 15:15 PT 12.0 secs (9.9-12.6) 06/16/20 15:15 INR 1.1 (0.8-1.2) 06/16/20 15:15 Sodium 137 mmol/L (135-145) 06/16/20 15:15 Potassium 4.1 mmol/L (3.5-5.0) 06/16/20 15:15 Chloride 92 mmol/L (101-111) L 06/16/20 15:15 Carbon Dioxide 26 mmol/L (21-32) 06/16/20 15:15 Anion Gap 19.0 (6-13) H 06/16/20 15:15 BUN 38 mg/dL (6-20) H 06/16/20 15:15 Creatinine 2.5 mg/dL (0.4-1.0) H 06/16/20 15:15 Estimated GFR (MDRD) 19 (>89) L 06/16/20 15:15 Glucose 160 mg/dL (70-100) H 06/16/20 15:15 Calcium 9.7 mg/dL (8.5-10.3) 06/16/20 15:15 Nasal Adenovirus (PCR) NOT DETECTED 06/16/20 15:35 Nasal B. parapertussis DNA (PCR) NOT DETECTED 06/16/20 15:35 Nasal Coronavir 229E PCR NOT DETECTED 06/16/20 15:35 Nasal Coronavir HKU1 PCR NOT DETECTED 06/16/20 15:35 Nasal Coronavir NL63 PCR NOT DETECTED 06/16/20 15:35 Nasal Coronavir OC43 PCR NOT DETECTED 06/16/20 15:35 Nasal Enterovir/Rhinovir PCR NOT DETECTED 06/16/20 15:35 Nasal Influenza B PCR NOT DETECTED 06/16/20 15:35 Nasal Influenza A PCR NOT DETECTED 06/16/20 15:35 Nasal Parainfluen 1 PCR NOT DETECTED 06/16/20 15:35 Nasal Parainfluen 2 PCR NOT DETECTED 06/16/20 15:35 Nasal Parainfluen 3 PCR NOT DETECTED 06/16/20 15:35 Nasal Parainfluen 4 PCR NOT DETECTED 06/16/20 15:35 Nasal RSV (PCR) NOT DETECTED 06/16/20 15:35 Nasal B.pertussis DNA PCR NOT DETECTED 06/16/20 15:35 Nasal C.pneumoniae (PCR) NOT DETECTED 06/16/20 15:35 Ceferino Human Metapneumo PCR NOT DETECTED 06/16/20 15:35 Nasal M.pneumoniae (PCR) NOT DETECTED 06/16/20 15:35 Nasal SARS-CoV-2 (PCR) NOT DETECTED 06/16/20 15:35
[2020-06-16] MEDS ORDERED: DEXAMETHASONE 4 MG/ML VIAL ONE (19:26)
[2020-06-16] MEDS ORDERED: GLYCOPYRROLATE 1 MG/5 ML VIAL ONE (19:30)
[2020-06-16] MEDS ORDERED: ACETAMINOPHEN 1,000 MG/100 ML 100 ML IV ONE (19:38)
[2020-06-16] MEDS ORDERED: PHENYLEPHRINE 10 MG/ML VIAL ONE (19:52)
[2020-06-16] MEDS ORDERED: BUPIVACAINE 0.25% PF 30 ML VIAL SUBQ ONE ×2 (20:53)
[2020-06-16] MEDS ORDERED: BUPIVACAINE 0.25% PF 30 ML VIAL ONE (21:02)
[2020-06-16] MEDS ORDERED: LACTATED RINGERS 1,000 ML IV ONE (21:06)
[2020-06-16] MEDS ORDERED: PROCHLORPERAZINE 10 MG/2 ML VIAL IVP PRN (21:07)
[2020-06-16] MEDS ORDERED: SENNA 8.6 MG TABLET PO PRN (21:07)
[2020-06-16] MEDS ORDERED: DOCUSATE SODIUM 100 MG CAPSULE PO PRN (21:07)
[2020-06-16] MEDS ORDERED: SODIUM CHLORIDE FLUSH 0.9% 10 ML SYRINGE IVP PRN (21:07)
[2020-06-16] MEDS ORDERED: MORPHINE 2 MG/ML CARPUJECT IVP PRN ×2 (21:07→21:26)
[2020-06-16] MEDS ORDERED: LIDOCAINE-PF 2% 10 ML AMP SUBQ ONE (21:09)
[2020-06-16] MEDS ORDERED: ATROPINE ABBOJECT 1 MG/10 ML SYRINGE IVP PRN (21:26)
[2020-06-16] MEDS ORDERED: ONDANSETRON 4 MG/2 ML VIAL IVP PRN (21:26)
[2020-06-16] MEDS ORDERED: fentaNYL 100 MCG/2 ML VIAL IVP PRN (21:26)
[2020-06-16] MEDS ORDERED: ePHEDrine 50 MG/ML VIAL IVP PRN (21:26)
[2020-06-16] MEDS ORDERED: NALOXONE 0.4 MG/ML VIAL IVP PRN (21:26)
[2020-06-16] MEDS ORDERED: HYDROmorphone 0.5 MG/0.5 ML SYRINGE IVP PRN (21:26)
[2020-06-16] MEDS ORDERED: METOCLOPRAMIDE 10 MG/2 ML VIAL IVP PRN (21:26)
--- NOTE | 2020-06-16 21:33 | ANESTHESIA POST OP EVALUATION ---
Anesthesia Post Eval - Post Anesthesia Eval Vitals: Last Vital Signs Temp 36.5 C 06/16/20 15:01 Pulse 71 06/16/20 18:17 Resp 16 06/16/20 18:17 BP 117/27 L 06/16/20 18:53 Pulse Ox 95 06/16/20 18:17 CV Function Including HR & BP: positive: Stable Pain Control: positive: Satisfactory Nausea & Vomiting: positive: Negative Mental Status: positive: Baseline Respiratory Status: Airway Patent Hydration Status: Satisfactory Anesthesia Complications: positive: None
[2020-06-16] MEDS: SODIUM CHLORIDE 0.9% 1,000 ML IV SCH (21:47)
[2020-06-16] MEDS: ceFAZolin 2 GM/50 ML 2 GM/50 ML BAG IV SCH (21:49)
--- NOTE | 2020-06-16 21:58 | OPERATIVE REPORT ---
DATE OF SERVICE: 06/16/2020 Physician: Yan Mccurdy MD PREOPERATIVE DIAGNOSIS: Grade 1 open right distal tibial and fibular shaft fractures. POSTOPERATIVE DIAGNOSIS: Grade 1 open right distal tibial and fibular shaft fractures. PROCEDURE PERFORMED: Irrigation and debridement of open fracture; intramedullary tibial nailing of f racture with 1 distal locking screw. SURGEON: Yan Mccurdy MD ANESTHESIA: General. DESCRIPTION OF PROCEDURE: The patient was taken to the operating room from the Emergency Room on the evening of 06/16/2020 where she was placed under a general anesthetic without any complications. We placed a thigh pneumatic tourniquet on the right leg, but did not inflate it during our case. We th en prepped and draped the leg free in the usual fashion for our procedure. We incised the skin edges of the small laceration anteromedially in the distal calf overlying her distal tibia fracture. Minim al additional debridement was necessary from the wound. We then copiously irrigated the wound with p ulse lavage. A total of 2000 mL of sterile saline was utilized. Next, we then directed our attentio n to the fracture fixation. Placing the leg on a metal triangle to flex the hip and flex the knee, we had access to the proximal tibia, just medial to the tibial tubercle. This is where we placed a longitudinal skin incision. Us ing this is our start point, we then used a pointed awl to perforate the anterior tibial cortex. Thi s was then followed by a bent ball-tip guide, which was advanced manually down the tibial shaft and d own past the fracture into the distal tibial fragment. Fluoroscopic view in AP and lateral projectio n confirmed the intraosseous location and depth of our ball-tip guide into the distal fragment. Sati sfied with this, we then proceeded to sequentially ream the tibial shaft, starting with a 9 mm end-cu tting flexible reamer. This was then advanced in 1 mm increments up to a total of an 11 mm flexible reamer. At this point, we measured, using our ball-tip guide as a reference, and determined the best nail for us would to be a 10 mm x 32 cm intramedullary nail. This selected nail was then placed on the outrigger/alignment guide. We then proceeded to drive the nail home with the leg in a reduced po sition, care making sure that we had the rotation of the fracture satisfactory. Fluoroscopically, we noted that the nail placement was satisfactory across the fracture and into the distal tibial fragme nt. Fracture appeared to be out to length and the rotation appeared to be satisfactory as well. At this point, we decided to put in one distal locking screw, since there was such a good interferenc e fit of the tibial nail with the tibia shaft. Making a small skin incision anterolaterally over the distal most hole in our tibial nail, we then proceeded to drill bicortically through the distal hole of our nail in followed up with the appropriate length 5 x 42.5 mm length distal locking screw. Thi s was inserted by hand. Fluoroscopic views of the distal portion of the tibia showed the distal lock ing screw to be bicortical and through the distal hole of our nail. It also showed the fracture of t he tibia to be essentially out to length and in good alignment. Finally, AP and lateral projections of the proximal tibia showed the tibial nail to be well seated and within the tibia. We then irrigated the wounds out thoroughly with saline. We closed the proximal wound using buried s imple stitches of 3-0 Vicryl to close the subcutaneous tissues, followed by skin dannielle to approxima te the two surgical incision sites. One stitch was placed over the original open wound to keep the w ound from a gaping open. We then dressed the wounds using Xeroform gauze, 4 x 4's, Mansi, and Emanuel wr aps. The patient was then awoken from her anesthetic and taken to the recovery room in satisfactory condition. ESTIMATED BLOOD LOSS: 150 mL. REPLACEMENT: 1200 mL of crystalloid. INTRAOPERATIVE COMPLICATIONS: None. PLAN: The patient may be up weightbearing as tolerated on this extremity. TD: 06/16/2020 21:35
[2020-06-16] MEDS ORDERED: LACTATED RINGERS 1,000 ML IV SCH (22:00)
[2020-06-17] MEDS ORDERED: LACTATED RINGERS 1,000 ML IV ONE (00:12)
[2020-06-17 00:56] LABS: HGB - HEMOGLOBIN 9.6 g/dL (12.0-16.0)
[2020-06-17] MEDS: SODIUM CHLORIDE FLUSH 0.9% 10 ML SYRINGE IVP SCH ×4 (01:10→23:47)
[2020-06-17] MEDS: ACETAMINOPHEN 325 MG TABLET PO PRN ×2 (01:11→23:44)
[2020-06-17 05:07] LABS: BASOPHILS % (AUTO) 0.2 %; HCT - HEMATOCRIT 29.2 % (37.0-47.0); HGB - HEMOGLOBIN 8.8 g/dL (12.0-16.0); LYMPHOCYTES # (AUTO) 2.6 10^3/uL (1.5-3.5); LYMPHOCYTES % (AUTO) 21.7 %; MEAN CORPUSCULAR HEMOGLOBIN 28.9 pg (27.0-31.0); MEAN CORPUSCULAR HGB CONC 30.1 g/dL (32.0-36.0); MEAN CORPUSCULAR VOLUME 96.1 fL (81.0-99.0); MEAN PLATELET VOLUME 9.8 fL (7.9-10.8); MONOCYTES # (AUTO) 0.4 10^3/uL (0.0-1.0); MONOCYTES % (AUTO) 3.7 %; NEUTROPHILS # (AUTO) 8.7 10^3/uL (1.5-6.6); NEUTROPHILS % (AUTO) 73.8 %; PLT - PLATELET COUNT 170 10^3/uL (130-450); RED BLOOD COUNT 3.04 10^6/uL (4.20-5.40); RED CELL DISTRIBUTION WIDTH 14.4 % (12.0-15.0); WHITE BLOOD COUNT 11.8 x10^3/uL (4.8-10.8)
[2020-06-17 05:21] LABS: CALCIUM 8.3 mg/dL (8.5-10.3); CREATININE 2.3 mg/dL (0.4-1.0); POTASSIUM 4.7 mmol/L (3.5-5.0)
[2020-06-17] MEDS: ceFAZolin 2 GM/50 ML 2 GM/50 ML BAG IV SCH (06:54)
[2020-06-17] MEDS ORDERED: INSULIN ASPART 300 UNIT/3 ML PEN SUBQ ONE (07:33)
[2020-06-17] MEDS ORDERED: SPIRONOLACTONE 25 MG TABLET PO SCH ×2 (09:00→10:38)
[2020-06-17] MEDS ORDERED: LOSARTAN 50 MG TABLET PO SCH ×2 (09:00→10:38)
[2020-06-17] MEDS ORDERED: diltiaZEM CD 120 MG CAPSULE PO SCH (09:00)
--- NOTE | 2020-06-17 09:01 | XRAY Report ---
PROCEDURE: OR C-Arm Procedure INDICATIONS: TIBIAL NAILING TECHNIQUE: 4 spot fluoroscopic intraoperative views COMPARISON: None. FINDINGS: Spot fluoroscopic intraoperative views demonstrating internal fixation of the tibial fracture with in tramedullary ria and screw fixation. Hardware appears intact. Expected intraoperative alignment. Fibu lar fracture also noted. Reviewed by: Conor Narvaez MD on 06/17/2020 9:00 AM [facility] Approved by: Conor Narvaez MD on 06/17/2020 9:00 AM [facility] Station ID: [id number]
[2020-06-17] MEDS: diltiaZEM CD 120 MG CAPSULE PO SCH (10:08)
[2020-06-17] MEDS: INSULIN ASPART 300 UNIT/3 ML PEN SUBQ SCH ×4 (10:09→21:13)
[2020-06-17] MEDS: DULoxetine 30 MG CAPSULE PO SCH (10:24)
[2020-06-17] MEDS: ASPIRIN 325 MG TABLET PO SCH ×2 (10:24→16:52)
[2020-06-17] MEDS: METHADONE 5 MG TABLET PO SCH ×2 (10:25→20:58)
[2020-06-17] MEDS: clonazePAM 0.5 MG TABLET PO PRN (10:47)
[2020-06-17 10:49] LABS: HCT - HEMATOCRIT 29.4 % (37.0-47.0); HGB - HEMOGLOBIN 9.2 g/dL (12.0-16.0); MEAN CORPUSCULAR HEMOGLOBIN 29.5 pg (27.0-31.0); MEAN CORPUSCULAR HGB CONC 31.3 g/dL (32.0-36.0); MEAN CORPUSCULAR VOLUME 94.2 fL (81.0-99.0); MEAN PLATELET VOLUME 9.8 fL (7.9-10.8); RED BLOOD COUNT 3.12 10^6/uL (4.20-5.40); RED CELL DISTRIBUTION WIDTH 14.4 % (12.0-15.0); WHITE BLOOD COUNT 16.5 x10^3/uL (4.8-10.8)
[2020-06-17] MEDS: SODIUM CHLORIDE 0.9% 1,000 ML IV SCH ×2 (13:09→22:47)
--- NOTE | 2020-06-17 13:46 | PROVIDER PROGRESS NOTE ---
Subjective - Prog Note Date Prog Note Date: 06/17/20 Prog Note Time: 13:43 - Subjective Pt reports feeling: Improved Objective - Vital Signs/Intake & Output Vital Signs: Vital Signs x48h Temp Pulse Pulse Pulse Resp BP BP 06/17/20 11:28 37.2 C 110 H 18 140/50 H 06/17/20 10:50 108 H 95 140/50 H 06/17/20 07:39 36.8 C 80 16 115/36 L BP Pulse Ox 06/17/20 11:28 96 06/17/20 10:50 127/45 L 06/17/20 07:39 97 Intake & Output: Intake & Output 06/14/20 06/15/20 06/16/20 06/17/20 23:59 23:59 23:59 23:59 Intake Total 622.5 2530.000 Output Total 650 Balance 622.5 1880.000 - Lab Results Fish Bones: 06/17/20 10:40 06/17/20 04:33 Other Labs: Lab Results x24hrs 06/17/20 06/17/20 06/17/20 Range/Units 10:55 10:40 10:40 WBC 16.5 H (4.8-10.8) x10^3/uL RBC 3.12 L (4.20-5.40) 10^6/uL Hgb 9.2 L (12.0-16.0) g/dL Hct 29.4 L (37.0-47.0) % MCV 94.2 (81.0-99.0) fL MCH 29.5 (27.0-31.0) pg MCHC 31.3 L (32.0-36.0) g/dL RDW 14.4 (12.0-15.0) % Plt Count 191 (130-450) 10^3/uL MPV 9.8 (7.9-10.8) fL Neut # (Auto) Lymph # (Auto) Roane # (Auto) Eos # (Auto) Baso # (Auto) Absolute Nucleated RBC Total Counted Band Neuts % (Manual) (0 - 10) % Abnorm Lymph % (Manual) % Nucleated RBC % Neutrophils # (Manual) (1.5-6.6) 10^3/uL Lymphocytes # (Manual) (1.5-3.5) 10^3/uL Monocytes # (Manual) (0.0-1.0) 10^3/uL Eosinophils # (Manual) (0-0.7) 10^3/uL Basophils # (Manual) (0-0.1) 10^3/uL Differential Comment WBC Morphology (NORMAL) Platelet Estimate (NORMAL) Platelet Morphology (NORMAL) RBC Morph Micro Appear (NORMAL) PT (9.9-12.6) secs INR (0.8-1.2) Sodium (135-145) mmol/L Potassium (3.5-5.0) mmol/L Chloride (101-111) mmol/L Carbon Dioxide (21-32) mmol/L Anion Gap (6-13) BUN (6-20) mg/dL Creatinine (0.4-1.0) mg/dL Estimated GFR (MDRD) (>89) Glucose (70-100) mg/dL Calcium (8.5-10.3) mg/dL Nasal Adenovirus (PCR) Nasal B. parapertussis DNA (PCR) Nasal Coronavir 229E PCR Nasal Coronavir HKU1 PCR Nasal Coronavir NL63 PCR Nasal Coronavir OC43 PCR Nasal Enterovir/Rhinovir PCR Nasal Influenza B PCR Nasal Influenza A PCR Nasal Parainfluen 1 PCR Nasal Parainfluen 2 PCR Nasal Parainfluen 3 PCR Nasal Parainfluen 4 PCR Nasal RSV (PCR) Nasal B.pertussis DNA PCR Nasal C.pneumoniae (PCR) Ceferino Human Metapneumo PCR Nasal M.pneumoniae (PCR) Nasal SARS-CoV-2 (PCR) Blood Type A POSITIVE Blood Type Recheck A POSITIVE Antibody Screen NEGATIVE 06/17/20 06/17/20 06/17/20 Range/Units 04:33 04:33 00:48 WBC 11.8 H (4.8-10.8) x10^3/uL RBC 3.04 L (4.20-5.40) 10^6/uL Hgb 8.8 L 9.6 L (12.0-16.0) g/dL Hct 29.2 L 32.0 L (37.0-47.0) % MCV 96.1 (81.0-99.0) fL MCH 28.9 (27.0-31.0) pg MCHC 30.1 L (32.0-36.0) g/dL RDW 14.4 (12.0-15.0) % Plt Count 170 (130-450) 10^3/uL MPV 9.8 (7.9-10.8) fL Neut # (Auto) 8.7 H Lymph # (Auto) 2.6 Roane # (Auto) 0.4 Eos # (Auto) 0.0 Baso # (Auto) 0.0 Absolute Nucleated RBC 0.00 Total Counted Band Neuts % (Manual) (0 - 10) % Abnorm Lymph % (Manual) % Nucleated RBC % 0.0 Neutrophils # (Manual) (1.5-6.6) 10^3/uL Lymphocytes # (Manual) (1.5-3.5) 10^3/uL Monocytes # (Manual) (0.0-1.0) 10^3/uL Eosinophils # (Manual) (0-0.7) 10^3/uL Basophils # (Manual) (0-0.1) 10^3/uL Differential Comment WBC Morphology (NORMAL) Platelet Estimate (NORMAL) Platelet Morphology (NORMAL) RBC Morph Micro Appear (NORMAL) PT (9.9-12.6) secs INR (0.8-1.2) Sodium 132 L (135-145) mmol/L Potassium 4.7 (3.5-5.0) mmol/L Chloride 98 L (101-111) mmol/L Carbon Dioxide 22 (21-32) mmol/L Anion Gap 12.0 (6-13) BUN 34 H (6-20) mg/dL Creatinine 2.3 H (0.4-1.0) mg/dL Estimated GFR (MDRD) 21 L (>89) Glucose 305 H (70-100) mg/dL Calcium 8.3 L (8.5-10.3) mg/dL Nasal Adenovirus (PCR) Nasal B. parapertussis DNA (PCR) Nasal Coronavir 229E PCR Nasal Coronavir HKU1 PCR Nasal Coronavir NL63 PCR Nasal Coronavir OC43 PCR Nasal Enterovir/Rhinovir PCR Nasal Influenza B PCR Nasal Influenza A PCR Nasal Parainfluen 1 PCR Nasal Parainfluen 2 PCR Nasal Parainfluen 3 PCR Nasal Parainfluen 4 PCR Nasal RSV (PCR) Nasal B.pertussis DNA PCR Nasal C.pneumoniae (PCR) Ceferino Human Metapneumo PCR Nasal M.pneumoniae (PCR) Nasal SARS-CoV-2 (PCR) Blood Type Blood Type Recheck Antibody Screen 06/16/20 06/16/20 06/16/20 Range/Units 15:35 15:15 15:15 WBC (4.8-10.8) x10^3/uL RBC (4.20-5.40) 10^6/uL Hgb (12.0-16.0) g/dL Hct (37.0-47.0) % MCV (81.0-99.0) fL MCH (27.0-31.0) pg MCHC (32.0-36.0) g/dL RDW (12.0-15.0) % Plt Count (130-450) 10^3/uL MPV (7.9-10.8) fL Neut # (Auto) Lymph # (Auto) Roane # (Auto) Eos # (Auto) Baso # (Auto) Absolute Nucleated RBC Total Counted Band Neuts % (Manual) (0 - 10) % Abnorm Lymph % (Manual) % Nucleated RBC % Neutrophils # (Manual) (1.5-6.6) 10^3/uL Lymphocytes # (Manual) (1.5-3.5) 10^3/uL Monocytes # (Manual) (0.0-1.0) 10^3/uL Eosinophils # (Manual) (0-0.7) 10^3/uL Basophils # (Manual) (0-0.1) 10^3/uL Differential Comment WBC Morphology (NORMAL) Platelet Estimate (NORMAL) Platelet Morphology (NORMAL) RBC Morph Micro Appear (NORMAL) PT 12.0 (9.9-12.6) secs INR 1.1 (0.8-1.2) Sodium 137 (135-145) mmol/L Potassium 4.1 (3.5-5.0) mmol/L Chloride 92 L (101-111) mmol/L Carbon Dioxide 26 (21-32) mmol/L Anion Gap 19.0 H (6-13) BUN 38 H (6-20) mg/dL Creatinine 2.5 H (0.4-1.0) mg/dL Estimated GFR (MDRD) 19 L (>89) Glucose 160 H (70-100) mg/dL Calcium 9.7 (8.5-10.3) mg/dL Nasal Adenovirus (PCR) NOT DETECTED Nasal B. parapertussis DNA (PCR) NOT DETECTED Nasal Coronavir 229E PCR NOT DETECTED Nasal Coronavir HKU1 PCR NOT DETECTED Nasal Coronavir NL63 PCR NOT DETECTED Nasal Coronavir OC43 PCR NOT DETECTED Nasal Enterovir/Rhinovir PCR NOT DETECTED Nasal Influenza B PCR NOT DETECTED Nasal Influenza A PCR NOT DETECTED Nasal Parainfluen 1 PCR NOT DETECTED Nasal Parainfluen 2 PCR NOT DETECTED Nasal Parainfluen 3 PCR NOT DETECTED Nasal Parainfluen 4 PCR NOT DETECTED Nasal RSV (PCR) NOT DETECTED Nasal B.pertussis DNA PCR NOT DETECTED Nasal C.pneumoniae (PCR) NOT DETECTED Ceferino Human Metapneumo PCR NOT DETECTED Nasal M.pneumoniae (PCR) NOT DETECTED Nasal SARS-CoV-2 (PCR) NOT DETECTED Blood Type Blood Type Recheck Antibody Screen 06/16/20 Range/Units 15:15 WBC 13.1 H (4.8-10.8) x10^3/uL RBC 4.02 L (4.20-5.40) 10^6/uL Hgb 11.8 L (12.0-16.0) g/dL Hct 37.3 (37.0-47.0) % MCV 92.8 (81.0-99.0) fL MCH 29.4 (27.0-31.0) pg MCHC 31.6 L (32.0-36.0) g/dL RDW 14.4 (12.0-15.0) % Plt Count 223 (130-450) 10^3/uL MPV 9.0 (7.9-10.8) fL Neut # (Auto) Not Reportable Lymph # (Auto) Not Reportable Roane # (Auto) Not Reportable Eos # (Auto) Not Reportable Baso # (Auto) Not Reportable Absolute Nucleated RBC Not Reportable Total Counted 100 Band Neuts % (Manual) 0 (0 - 10) % Abnorm Lymph % (Manual) 0 % Nucleated RBC % Not Reportable Neutrophils # (Manual) 8.1 H (1.5-6.6) 10^3/uL Lymphocytes # (Manual) 4.6 H (1.5-3.5) 10^3/uL Monocytes # (Manual) 0.4 (0.0-1.0) 10^3/uL Eosinophils # (Manual) 0.0 (0-0.7) 10^3/uL Basophils # (Manual) 0.0 (0-0.1) 10^3/uL Differential Comment MANUAL DIFFERENTIAL WBC Morphology NORMAL APPEARANCE (NORMAL) Platelet Estimate NORMAL (130-450,000) (NORMAL) Platelet Morphology NORMAL APPEARANCE (NORMAL) RBC Morph Micro Appear NORMAL APPEARANCE (NORMAL) PT (9.9-12.6) secs INR (0.8-1.2) Sodium (135-145) mmol/L Potassium (3.5-5.0) mmol/L Chloride (101-111) mmol/L Carbon Dioxide (21-32) mmol/L Anion Gap (6-13) BUN (6-20) mg/dL Creatinine (0.4-1.0) mg/dL Estimated GFR (MDRD) (>89) Glucose (70-100) mg/dL Calcium (8.5-10.3) mg/dL Nasal Adenovirus (PCR) Nasal B. parapertussis DNA (PCR) Nasal Coronavir 229E PCR Nasal Coronavir HKU1 PCR Nasal Coronavir NL63 PCR Nasal Coronavir OC43 PCR Nasal Enterovir/Rhinovir PCR Nasal Influenza B PCR Nasal Influenza A PCR Nasal Parainfluen 1 PCR Nasal Parainfluen 2 PCR Nasal Parainfluen 3 PCR Nasal Parainfluen 4 PCR Nasal RSV (PCR) Nasal B.pertussis DNA PCR Nasal C.pneumoniae (PCR) Ceferino Human Metapneumo PCR Nasal M.pneumoniae (PCR) Nasal SARS-CoV-2 (PCR) Blood Type Blood Type Recheck Antibody Screen - Other Results/Comments Other Results/Comments: EXAM: Some serosangious drainage from wounds, as expected. Moves toes well. Sensation ok. Good cap filling Assessment/Plan - Problem List (1) Open fracture of tibia and fibula, shaft Impression: Satis post op PLAN: Mobilize as tolerated. Hope to transition home this weekend, if cleared by PT. Qualifiers: Encounter type: initial encounter Open fracture type: open type I or II Laterality: right Qualified Code(s): S82.201B - Unspecified fracture of shaft of right tibia, initial encounter for open fracture type I or II; S82.401B - Unspecified fracture of shaft of right fibula, initial encounter for open fracture type I or II
[2020-06-17] MEDS: oxyCODONE 5 MG TABLET PO PRN ×2 (16:38→23:42)
--- NOTE | 2020-06-17 18:38 | PHARMACY PROGRESS NOTE ---
- Best Possible Medication History Admit Date and Time: 06/16/20 1900 Processed by: Nursing Medication History completed: Yes As the person ultimately responsible for medication therapy, providers are able to order a medication from an existing home medication list in [facility] via the "Reconcile Routine" prior to Confirmation of that medication by technical support technician. Such practice is discouraged except when the physician, in their clinical judgment, deems that a medical need exists for a medication without regard to previous use.
[2020-06-17] MEDS ORDERED: INSULIN GLARGINE 300 UNIT/3 ML PEN SUBQ SCH (21:00)
[2020-06-17] MEDS ORDERED: GABAPENTIN 300 MG CAPSULE PO SCH (21:00)
[2020-06-18] MEDS: oxyCODONE 5 MG TABLET PO PRN ×2 (04:45→11:57)
[2020-06-18] MEDS: INSULIN ASPART 300 UNIT/3 ML PEN SUBQ SCH ×2 (07:48→11:57)
[2020-06-18] MEDS: ASPIRIN 325 MG TABLET PO SCH (07:48)
[2020-06-18] MEDS: SODIUM CHLORIDE 0.9% 1,000 ML IV SCH (07:48)
[2020-06-18] MEDS ORDERED: INSULIN ASPART 300 UNIT/3 ML PEN SUBQ ONE (07:54)
--- NOTE | 2020-06-18 07:58 | PROVIDER PROGRESS NOTE ---
Subjective - Prog Note Date Prog Note Date: 06/18/20 Prog Note Time: 07:56 - Subjective Subjective: Last night, the nurse could not find a pulse even with Doppler. As such a lower extremity arterial Doppler was ordered for the right. She has significant nonocclusive atherosclerotic disease with elevated velocities involving the common femoral, profunda and proximal superficial femoral arteries. She does not have any leg ischemia pain. She says that her pain is always due to peripheral neuropathy and that is unchanged. Significant amount of anxiety about the possibility of oncoming pain. Right now she has a block since the day of admission and is going to start wearing off. She says that she is just incredibly intolerant of pain to the point that she ended up on opiates for peripheral neuropathy. She was very reluctant with her primary care provider switched her to methadone and has been tapering her methadone for the last few months. She wants us to make sure that we treat her pain. She is now reporting that the reservoir for her insulin pump is low. She did not tell me she had an insulin pump when she was admitted. Yesterday we treated her glucose with Lantus and sliding scale. This morning her glucose is 305. Current Medications - Current Medications Current Medications: Active Medications Acetaminophen (Acetaminophen 325 Mg Tablet) 650 - 975 mg PO Q4HR PRN PRN Reason: PAIN Last Admin: 06/17/20 23:44 Dose: 650 mg Documented by: Aspirin (Aspirin 325 Mg Tablet) 325 mg PO BIDWM [facility], [facility] Last Admin: 06/18/20 07:48 Dose: 325 mg Documented by: Clonazepam (Clonazepam 0.5 Mg Tablet) 0.5 mg PO BID PRN PRN Reason: Anxiety Last Admin: 06/17/20 10:47 Dose: 0.5 mg Documented by: Diltiazem HCl (Diltiazem Cd 120 Mg Capsule) 120 mg PO DAILY [facility] Last Admin: 06/17/20 10:08 Dose: Not Given Documented by: Docusate Sodium (Docusate Sodium 100 Mg Capsule) 100 mg PO BID PRN PRN Reason: Constipation Duloxetine HCl (Duloxetine 30 Mg Capsule) 60 mg PO DAILY [facility] Last Admin: 06/17/20 10:24 Dose: 60 mg Documented by: Gabapentin (Gabapentin 300 Mg Capsule) 600 mg PO QPM [facility] Last Admin: 06/17/20 20:58 Dose: 600 mg Documented by: Sodium Chloride (Normal Saline 0.9%) 1,000 mls @ 100 mls/hr IV .Q10H [facility] Last Admin: 06/18/20 07:48 Dose: 100 mls/hr Documented by: Insulin Aspart (Insulin Aspart 300 Unit/3 Ml Pen) 1 - 9 unit SUBQ 0800,1200,1700,2100 [facility]; Protocol Last Admin: 06/18/20 07:48 Dose: 3 unit Documented by: Insulin Glargine (Insulin Glargine 300 Unit/3 Ml Pen) 10 unit SUBQ QPM [facility] Last Admin: 06/17/20 21:14 Dose: 10 unit Documented by: Losartan Potassium (Losartan 50 Mg Tablet) 50 mg PO DAILY [facility] Methadone HCl (Methadone 5 Mg Tablet) 5 mg PO BID [facility] Last Admin: 06/17/20 20:58 Dose: 5 mg Documented by: Morphine Sulfate (Morphine 2 Mg/Ml Carpuject) 2 mg IVP Q2HR PRN PRN Reason: PAIN Oxycodone HCl (Oxycodone 5 Mg Tablet) 5 mg PO Q4HR PRN PRN Reason: PAIN Last Admin: 06/18/20 04:45 Dose: 5 mg Documented by: Prochlorperazine Edisylate (Prochlorperazine 10 Mg/2 Ml Vial) 10 mg IVP Q6HR PRN PRN Reason: Nausea / Vomiting Senna (Senna 8.6 Mg Tablet) 17.2 mg PO Q12H PRN PRN Reason: Constipation Sodium Chloride (Sodium Chloride Flush 0.9% 10 Ml Syringe) 10 ml IVP 0 100,0900,1700 [facility] Last Admin: 06/17/20 23:47 Dose: 10 ml Documented by: Sodium Chloride (Sodium Chloride Flush 0.9% 10 Ml Syringe) 10 ml IVP PRN PRN PRN Reason: NEEDED PER PROVIDER ORDERS Spironolactone (Spironolactone 25 Mg Tablet) 25 mg PO DAILY [facility] DULoxetine [Cymbalta] 60 mg PO DAILY 06/16/20 Diltiazem HCl [Diltiazem 12Hr ER] 1 tab PO DAILY 06/16/20 Gabapentin [Neurontin] 600 mg PO HS 06/16/20 Losartan/Hydrochlorothiazide [Hyzaar 100-12.5 Tablet] 1 tab PO DAILY 06/16/20 Methadone 5 mg PO BID 06/16/20 Rosuvastatin Calcium [Crestor] 40 mg PO DAILY 06/16/20 Spironolactone [Aldactone] 1 tab PO DAILY 06/16/20 clonazePAM [Clonazepam] 0.5 mg PO DAILY 06/16/20 traZODone [Desyrel] 1 tab PO PRN PRN 06/16/20 Objective - Vital Signs/Intake & Output Reviewed Vital Signs: Yes Vital Signs: Vital Signs x48h Temp Pulse Resp BP Pulse Ox 06/18/20 07:33 37.0 C 74 18 124/40 L 98 Intake & Output: Intake & Output 06/15/20 06/16/20 06/17/20 06/18/20 23:59 23:59 23:59 23:59 Intake Total 622.5 3630.000 901.667 Output Total 1600 1600 Balance 622.5 2030.000 -698.333 - Objective General Appearance: positive: No acute distress, Alert - Lab Results Fish Bones: 06/17/20 10:40 06/17/20 04:33 Other Labs: Lab Results x24hrs 06/17/20 06/17/20 06/17/20 Range/Units 10:55 10:40 10:40 WBC 16.5 H (4.8-10.8) x10^3/uL RBC 3.12 L (4.20-5.40) 10^6/uL Hgb 9.2 L (12.0-16.0) g/dL Hct 29.4 L (37.0-47.0) % MCV 94.2 (81.0-99.0) fL MCH 29.5 (27.0-31.0) pg MCHC 31.3 L (32.0-36.0) g/dL RDW 14.4 (12.0-15.0) % Plt Count 191 (130-450) 10^3/uL MPV 9.8 (7.9-10.8) fL Blood Type A POSITIVE Blood Type Recheck A POSITIVE Antibody Screen NEGATIVE Assessment/Plan - Problem List (1) Type 2 diabetes mellitus Impression: Possible malfunction of her insulin pump or low reservoir. Turn off the pump. Keep her on Lantus, give her a 10 unit dose of short acting insulin right now, and add fixed nutritional dosing as well. Check A1c. 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 In 2018 she was 1.2. 2019 1.3. 2019 she was 1.9. On admission she was 2.5 and today she is 2.3. Suspect uncontrolled high blood pressure, uncontrolled diabetes as the cause of worsening kidney disease. Plan: Make sure she she is outpatient nephrology She is on aspirin and losartan. The former can definitely have effects on her kidney function. The latter is plus minus. Would recommend that we avoid any further nonsteroidal therapy. Would also possibly recommend that she be on DVT prophylaxis in the form of heparin or Lovenox. (3) Open fracture of tibia and fibula, shaft Impression: Postoperative day #2. Very slow to move. We will have physical therapy evaluate her today. Qualifiers: Encounter type: initial encounter Open fracture type: open type I or II Laterality: right Qualified Code(s): S82.201B - Unspecified fracture of shaft of right tibia, initial encounter for open fracture type I or II; S82.401B - Unspecified fracture of shaft of right fibula, initial encounter for open fracture type I or II (4) Peripheral angiopathy due to DM Impression: Most likely due to previous history of smoking, and hypertension as well. I also strongly suspect that this woman may be noncompliant. She is a adri loquacious personality but small things such as inability to remember her home phone number, inability to remember last A1c's, have been suspicious that cognitive deficits are present. Plan: Cognitive eval We will speak to about plans for discharge and his ability or not to be able to take care of her (5) Acute blood loss as cause of postoperative anemia Impression: She was admitted with a hemoglobin of 11.8. I do not have previous hemoglobins to compare to. After surgery she dropped to 9.6, and today she is 9.2. Blood pressure is stable, tachycardia from yesterday has resolved. No dizziness, lightheadedness at this time. Plan: Continue to monitor and transfuse if less than 7.
[2020-06-18 08:04] LABS: CALCIUM 8.8 mg/dL (8.5-10.3); CREATININE 1.9 mg/dL (0.4-1.0); POTASSIUM 4.4 mmol/L (3.5-5.0)
[2020-06-18 08:16] LABS: BASOPHILS % (AUTO) 0.2 %; EOSINOPHILS % (AUTO) 0.2 %; HCT - HEMATOCRIT 27.5 % (37.0-47.0); HGB - HEMOGLOBIN 8.8 g/dL (12.0-16.0); LYMPHOCYTES # (AUTO) 4.1 10^3/uL (1.5-3.5); LYMPHOCYTES % (AUTO) 31.6 %; MEAN CORPUSCULAR HEMOGLOBIN 29.6 pg (27.0-31.0); MEAN CORPUSCULAR VOLUME 92.6 fL (81.0-99.0); MEAN PLATELET VOLUME 9.6 fL (7.9-10.8); MONOCYTES # (AUTO) 0.9 10^3/uL (0.0-1.0); MONOCYTES % (AUTO) 6.6 %; NEUTROPHILS # (AUTO) 7.9 10^3/uL (1.5-6.6); NEUTROPHILS % (AUTO) 60.9 %; PLT - PLATELET COUNT 190 10^3/uL (130-450); RED BLOOD COUNT 2.97 10^6/uL (4.20-5.40); RED CELL DISTRIBUTION WIDTH 14.4 % (12.0-15.0)
[2020-06-18] MEDS: METHADONE 5 MG TABLET PO SCH (09:22)
[2020-06-18] MEDS: DULoxetine 30 MG CAPSULE PO SCH (09:22)
[2020-06-18] MEDS: diltiaZEM CD 120 MG CAPSULE PO SCH (09:22)
[2020-06-18] MEDS: clonazePAM 0.5 MG TABLET PO PRN (09:23)
[2020-06-18] MEDS: SODIUM CHLORIDE FLUSH 0.9% 10 ML SYRINGE IVP SCH (09:24)
[2020-06-18 09:26] VITALS: BP 113/42
--- NOTE | 2020-06-18 11:49 | Ultrasound Report ---
PROCEDURE: Duplex Lwr Ext Arterial RT INDICATIONS: Diminished pulses. Post op opne tib/fib fracture. TECHNIQUE: Color and pulse Doppler interrogation was performed of the right lower extremity arterial system, wit h image documentation. ABIs were not performed. COMPARISON: CTA of the lower extremities dated 07/11/2018 is available by report only. Images are not available for comparison on today's exam. FINDINGS: Common femoral artery: 169.7 cm/sec, with monophasic flow. Deep femoral artery: 148.1 cm/sec, with monophasic flow. Proximal superficial femoral artery: 141.2 cm/sec, with monophasic flow. Mid superficial femoral artery: 123.4 cm/sec, with monophasic flow. Distal superficial femoral artery: 90.4 cm/sec, with monophasic flow. Popliteal artery: 59.2 cm/sec, with monophasic flow. Posterior tibial artery: 62.1 cm/sec, with monophasic flow. Anterior tibial artery/dorsalis pedis: 29/14.1 cm/sec, with monophasic flow. [place]-scale imaging description: Diffuse atherosclerosis is noted throughout the imaged vasculature. Color-flow is noted throughout the vessels. IMPRESSION: Significant nonocclusive atherosclerotic disease is noted throughout the right lower extremity. There are elevated velocities throughout the common femoral, profunda, and proximal superficial femoral ar teries. Agree with preliminary report. Reviewed by: Tai Lawrence DO on 06/18/2020 10:47 AM [facility] Approved by: Tai Lawrence DO on 06/18/2020 10:47 AM [facility] Station ID: [id number]
--- NOTE | 2020-06-18 13:12 | PROVIDER PROGRESS NOTE ---
Subjective - Prog Note Date Prog Note Date: 06/18/20 Prog Note Time: 13:10 - Subjective Pt reports feeling: Improved (Minimal pain now. Up in PT) Objective - Vital Signs/Intake & Output Vital Signs: Vital Signs x48h Temp Pulse Resp BP Pulse Ox 06/18/20 09:25 113/42 L 06/18/20 07:33 37.0 C 74 18 124/40 L 98 Intake & Output: Intake & Output 06/15/20 06/16/20 06/17/20 06/18/20 23:59 23:59 23:59 23:59 Intake Total 622.5 3630.000 1861.667 Output Total 1600 2800 Balance 622.5 2030.000 -938.333 - Lab Results Fish Bones: 06/18/20 07:48 06/18/20 07:48 Other Labs: Lab Results x24hrs 06/18/20 06/18/20 Range/Units 07:48 07:48 WBC 13.0 H (4.8-10.8) x10^3/uL RBC 2.97 L (4.20-5.40) 10^6/uL Hgb 8.8 L (12.0-16.0) g/dL Hct 27.5 L (37.0-47.0) % MCV 92.6 (81.0-99.0) fL MCH 29.6 (27.0-31.0) pg MCHC 32.0 (32.0-36.0) g/dL RDW 14.4 (12.0-15.0) % Plt Count 190 (130-450) 10^3/uL MPV 9.6 (7.9-10.8) fL Neut # (Auto) 7.9 H (1.5-6.6) 10^3/uL Lymph # (Auto) 4.1 H (1.5-3.5) 10^3/uL [place] # (Auto) 0.9 (0.0-1.0) 10^3/uL Eos # (Auto) 0.0 (0.0-0.7) 10^3/uL Baso # (Auto) 0.0 (0.0-0.1) 10^3/uL Absolute Nucleated RBC 0.00 x10^3/uL Nucleated RBC % 0.0 /100WBC Sodium 138 (135-145) mmol/L Potassium 4.4 (3.5-5.0) mmol/L Chloride 100 L (101-111) mmol/L Carbon Dioxide 26 (21-32) mmol/L Anion Gap 12.0 (6-13) BUN 33 H (6-20) mg/dL Creatinine 1.9 H (0.4-1.0) mg/dL Estimated GFR (MDRD) 26 L (>89) Glucose 221 H (70-100) mg/dL Calcium 8.8 (8.5-10.3) mg/dL - Other Results/Comments Other Results/Comments: EXAM: Dressing intact. Scant bloody drainage. N/V ok distally Moves toes well. Sensation - baseline. Good cap filling. Up in PT walking up and down s tairs with minimal assistance Assessment/Plan - Problem List (1) Open fracture of tibia and fibula, shaft Impression: Satis post PLAN: Discharge home, if cleared by PT. Follow up in 2 weeks in orthopedic clinic for dannielle out and wound check. Qualifiers: Encounter type: initial encounter Open fracture type: open type I or II Laterality: right Qualified Code(s): S82.201B - Unspecified fracture of shaft of right tibia, initial encounter for open fracture type I or II; S82.401B - Unspecified fracture of shaft of right fibula, initial encounter for open fracture type I or II
--- NOTE | 2020-06-18 13:44 | Discharge Plan ---
Discharge Plan Problem Reviewed?: Yes Disposition: Home Health Service Condition: Good Prescriptions: oxyCODONE [Roxicodone] 5 mg PO Q4HR PRN #30 mg PRN Reason: Pain Diet: Regular Shower Restrictions: Yes (may shower but keep wound clean and dry) Driving Restrictions: Yes (no driving until sees Ortho) Assistance Devices: Walker Weight Bearing: Partial Weight Health Concerns: You were in your kitchen and got dizzy. Apparently been having dizzy spells for several weeks now. 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 With this dizzy spell you fell backwards and your leg got caught underneath the kickboard of the kitchen cabinets. You broke the distal part of your bones of your leg as they attach to your ankle. It was an open wound and required urgent surgery because it was an open wound. Main problems that we noticed before surgery was diabetes out of control, memory loss, and slight worsening of your kidney disease. You underwent an uneventful surgical repair. You are now ready to be able to go home. Plan of Treatment: 1. Please see orthopedic surgery in 2 weeks to get your dannielle out and to get a wound check. 2. Take an aspirin twice a day to reduce your risk of blood clots in your legs. Sometimes this upsets your stomach so take in an acid when you take your aspirin. 3. You will be sent home on oxycodone 5 mg every 6 hours as needed. 30 tablets. If you need more pain medicine that please discuss with your primary care provider since you are on methadone as well. 4. Please make sure that your insulin pump is working well. While here your sugars got up to 300 because the insulin reservoir in your pump was emptied. We controlled her sugars by giving you long-acting insulin in the form of Lantus and short acting insulin before meals. Wounds do not heal if your glucose is above 150. Make sure that your glucose is below 150 on a regular basis. 5. You will be sent home with home health with physical therapy. 6. Your kidney function did improve. Your baseline is usually 1.6-1.7 creatinine. When you were admitted your creatinine was 2.5 which is a moderate reduction in kidney function. By discharge her creatinine is now 1.9. Make sure that you tell your heart doctor and your primary care provider about the kidney function problem. I do think that your blood pressure and diabetes control are not very good and are impacting your kidney function. Care Goals: To have good wound healing, good bone healing, and to return to regular baseline activity in the next 4 to 6 weeks. Assessment: Patient has a forgetful personality. For instance she cannot remember her home phone number and cell phone number at times. But she says that her daughter and her will be able to take good care of her. No Smoking: If you smoke, Please STOP! Call for help.
--- NOTE | 2020-06-18 17:27 | DISCHARGE SUMMARY ---
"Discharge Summary Admit Date: 06/16/20 Discharge Date: 06/18/20 Discharging Provider: Maureen Ryan MD Primary Care Provider: Socorro Delgadillo MD [facility] Code Status: Attempt Resuscitation Condition at Discharge: Good Discharge Disposition: Home Health Service - DIAGNOSES Discharge Diagnoses with Status of Each Condition: 1. Fracture of tibia/fibula shaft, open 2. Fall as accidental cause of injury at home 3. unControlled type 2 diabetes mellitus with complication with long-term use of insulin 4. Peripheral neuropathy from diabetes 5. Acute on chronic kidney disease (due to hypertension and diabetes). She should be referred to nephrology because of slowly rising creatinine over the last 3 years. 6. Hypertension 7. Acute on chronic anemia. Chronic anemia cause needs to be determined as to why it is present. 8. Mild to moderate cognitive deficits 9. Osteoporosis (please give reclast in next few weeks) - HPI History of Present Illness: This is a white female in her early 70s whose PMH is significant for hypertension, arteriosclerotic disease of the aorta, bilateral carotid stenosis as well as type 2 diabetes mellitus. She also has stage III chronic kidney disease. She has never had an IL or CHF. An Echo in 2017 showed nml LVEF, no wall motion abnormalities, mild LAE and mild . She has chronic pain syndrome and takes methadone on a regular basis to avoid opiates, and also has atrophy of her right calf. She was standing in her kitchen and reaching for something over her head. The movement of tilting her head back and looking up made her feel dizzy. Her right big toe and foot foot seem to lodge under a piece of cabinet toe kick and between the dizziness and the foot getting stuck, she could not move her leg fast enough and she fell. She had immediate pain in her right ankle and was brought to the emergency room via EMS. Initial evaluation had her at 97% saturation room air. Respirations 16. Blood pressure 110/44. Heart rate 71. She was seen by ER MD were physical exam was essentially normal with heart and lungs and abdomen but she had deformity of her left ankle. X-ray confirmed an open fracture of the distal right tib-fib. Her baseline creatinine is usually 1.3 and she is 2.5 today. Hemoglobin is 11.8. No previous hemoglobins in the chart. INR is 1.1. Random glucose 160. EKG shows sinus rhythm with PVC. Early R wave progression in the anterior leads but otherwise no acute changes. On review of systems she denies syncope, headache, focal neurological deficits. She denies chest pain, palpitations, orthopnea, edema. There is been no recent change in her cardiovascular endurance. She denies coughing, wheezing, congestions. She denies fever, chills, sore throat. Her primary care provider is Socorro Delgadillo MD at [facility] in [place]. Office fax [phone], and the office phone number is [phone]. She was unable to come to the phone but one of her partners was combination worker , , and was able to review her office chart for me. - Past Medical History Cardiovascular: reports: Hypertension, Peripheral Vascular Disease (bilateral carotid stenosis), Other (arteriosclerotic disease of aorta and coronary arteries seen on scans but no IL or angina) Neuro: reports: Peripheral neuropathy Endocrine/Autoimmune: reports: Type 2 diabetes (last A1c was 8.5% in February and she is due for labs) RIP SAWYER: reports: Other () : reports: Other Musculoskeletal: reports: Chronic back pain, Other (chronic atrophy right calf) MRSA Hx?: No - Past Surgical History Ortho: reports: Other (fx of knee 2018 located above current fx ) - CONSULTS | PROCEDURES Procedures: 1. Ankle x-ray, right, severely comminuted and angulated fracture of the distal tibia and fibula 2. Duplex scan lower extremity arterial with significant nonocclusive athero sclerotic disease noted throughout the right lower extremity. Elevated velocities throughout the common femoral, profunda, and proximal superficial femoral arteries. 3. Femoral nerve block 4. Intermedullary nailing of femur fx - HOSPITAL COURSE Hospital Course: She was admitted to the hospital with an open fracture of the tibia and fibula. Orthopedic consultation was done by Dr. Yan Mccurdy. He did an irrigation and debridement of the open fracture, and performed an intramedullary tibial nailing of the fracture with one distal locking screw. She also underwent a femoral nerve block.On the evening of June 17 the nurse could not find a foot pulse, even with a Doppler and as such a lower extremity arterial Doppler was ordered for the right foot and she was found to have significant nonocclusive atherosclerotic disease but she did have a pulse. She has chronic leg pain and she says is not any worse than usual. She attributes her leg pain to peripheral neuropathy. Significant anxiety was present during her stay. She was very fearful that the pain would become unbearable even though she had complete pain relief of the femoral nerve block. On admission, the patient was apparently on an insulin pump. She did not tell us that and we were managing her glucose with our Lantus and sliding scale. She then informed us that the insulin reservoir was empty and that is why her sugars were elevated. She was seen by physical therapy and Occupational Therapy and felt stable enough to return to home. As such she will be sent home with home health and physical therapy. And walker was ordered. We initially felt that the patient should probably go to a shelter facility because of increased needs with regards to bathing, ambulation. And her anxiety and impulsivity. However her spouse and daughter felt that they could take care of the patient. Daughter is already a care provider and knows how to do appropriate transitions. As such she was discharged home. Discharge blood pressure was 113/42. Temperature was 37. Respirations 18. Pulse was 74. 98% on room air. She is 5 feet 7 inches tall and weighs 90 kg. She is an alert chatty elderly female who looks older than her stated age. Neck is supple. Lungs are clear to auscultation and percussion she does not have increased respiratory effort. She has a regular rate and rhythm. And abdomen that is soft, nontender and has normal bowel sounds. Her last bowel movement was June 16. She is incontinent of urine and will use a pad. She has bruising on IV sites and over her surgery site. Right foot has a nonpalpable pulse the left foot has a bounding pulse. She has edema that is nonpitting of her right thigh and right ankle. The left without edema. Her admission creatinine was 2.5 was down to 1.9 at discharge. Baseline creatinine appears to be 1.2. I am asking her to please be seen by her primary care provider in the next 1 to 2 weeks. She will be seen by orthopedics in 2 weeks. Keep the wound clean and dry until orthopedic seizure. Home health with physical therapy has been ordered. Admitting hemoglobin was 11.8. Discharge hemoglobin 8.8. Greater than 30 minutes was spent coordinating discharge. With this fall, and femur fracture, she now has a formal diagnosis of osteoporosis. It is recommended that she start calcium, vitamin D. I would also recommend Reclast in the next 2 to 3 weeks once bone has started to heal. There is some discussion in the literature with a recon should be given at the time of fracture during hospital stay or in the outpatient setting. I have erred on the side of caution and will recommend that it be given in the outpatient setting. She would also be a candidate for Prolia but that would be twice a year. She might benefit from just once a year injection. - ALLERGIES Allergies/Adverse Reactions: Allergies Allergy/AdvReac Type Severity Reaction Status Date / Time No Known Drug Allergies Allergy Verified 06/16/20 15:01 - MEDICATIONS Home Medications: Ambulatory Orders Medication Instructions Recorded Confirmed DULoxetine [Cymbalta] 60 mg PO DAILY 06/16/20 06/16/20 Diltiazem HCl [Diltiazem 12Hr ER] 1 tab PO DAILY 06/16/20 06/16/20 Gabapentin [Neurontin] 600 mg PO HS 06/16/20 06/16/20 Losartan/Hydrochlorothiazide 1 tab PO DAILY 06/16/20 06/16/20 [Hyzaar 100-12.5 Tablet] Methadone [Methadone Hcl] 5 mg PO BID 06/16/20 06/16/20 Rosuvastatin Calcium [Crestor] 40 mg PO DAILY 06/16/20 06/16/20 Spironolactone [Aldactone] 1 tab PO DAILY 06/16/20 06/16/20 clonazePAM [Clonazepam] 0.5 mg PO DAILY 06/16/20 06/16/20 traZODone [Desyrel] 1 tab PO PRN PRN 06/16/20 06/16/20 Acetaminophen [Tylenol] 650 - 975 mg PO Q4HR PRN 06/18/20 Aspirin [Jeancarlos] 325 mg PO BIDWM 06/18/20 Walker [Ultra-Light Rollator] 1 each MC DAILY #1 each 06/18/20 oxyCODONE [Roxicodone] 5 mg PO Q4HR PRN #30 mg 06/18/20 - LABS Result Diagrams: 06/18/20 07:48 06/18/20 07:48 - QUALITY (Female Hip Fx Only) Was patient sent home on osteoporosis medication?: Yes"
== END 2020-06-18 14:55 | disposition home health service (06) | DRG 563 ==
LOC: EDUNIT# → SDS 14:53 → MS2 19:00
PROVIDERS: ADMIT Orthopaedic Surgery; ATTEND Specialist
PROC: 0QSG04Z Reposition Right Tibia with Internal Fixation Device, Open Approach (ICD-10-PCS; principal; 2020-06-16 17:00)
DX: S82.251B Displaced comminuted fracture of shaft of right tibia, initial encounter for open fracture type I or II (principal); N17.9 Acute kidney failure, unspecified; D62 Acute posthemorrhagic anemia; S82.451B Displaced comminuted fracture of shaft of right fibula, initial encounter for open fracture type I or II; Y92.010 Kitchen of single-family (private) house as the place of occurrence of the external cause; W18.30XA Fall on same level, unspecified, initial encounter; I65.23 Occlusion and stenosis of bilateral carotid arteries; E11.22 Type 2 diabetes mellitus with diabetic chronic kidney disease; I12.9 Hypertensive chronic kidney disease with stage 1 through stage 4 chronic kidney disease, or unspecified chronic kidney disease; N18.30 Chronic kidney disease, stage 3 unspecified; E11.51 Type 2 diabetes mellitus with diabetic peripheral angiopathy without gangrene; E11.65 Type 2 diabetes mellitus with hyperglycemia; E11.42 Type 2 diabetes mellitus with diabetic polyneuropathy; T38.3X6A Underdosing of insulin and oral hypoglycemic [antidiabetic] drugs, initial encounter; Z91.128 Patient's intentional underdosing of medication regimen for other reason; M81.0 Age-related osteoporosis without current pathological fracture; F41.9 Anxiety disorder, unspecified; G89.4 Chronic pain syndrome; R41.9 Unspecified symptoms and signs involving cognitive functions and awareness; I70.0 Atherosclerosis of aorta; Z20.822 Contact with and (suspected) exposure to COVID-19; M62.561 Muscle wasting and atrophy, not elsewhere classified, right lower leg; M54.9 Dorsalgia, unspecified; H91.90 Unspecified hearing loss, unspecified ear; R42 Dizziness and giddiness; R32 Unspecified urinary incontinence; M19.90 Unspecified osteoarthritis, unspecified site; Z96.41 Presence of insulin pump (external) (internal); Z79.899 Other long term (current) drug therapy; Z87.891 Personal history of nicotine dependence; Z79.4 Long term (current) use of insulin
CPT/HCPCS: 27827; 36415; 73600; 80048; 85014; 85018; 85025; 85027; 85610; 86850; 86900; 86901; 87631; 90471; 90715; 93005; 93926; 96361; 96365; 96375; 96376; 97116; 97161; 97165; 97530; 99284; 99285; A9270; J0131; J0690; J1170; J1815; J7120; 0202U

== ENCOUNTER 2020-08-31 13:30 | Outpatient (CLI) | payer MEDICARE ==
--- NOTE | 2020-08-31 14:04 | DEXA Report ---
PROCEDURE: Dexa Spine and/or Hip INDICATIONS: CLOSED FRACTURE OF R TIBIA AND FIBULA TECHNIQUE: Dual energy x-ray absorptiometry (DXA) was performed on a Satmex System. Regions measur ed are the AP Spine, femoral neck, and if needed forearm. COMPARISON: None. FINDINGS: Lumbar Spine: Bone Mineral Density 1.047 g/cm/cm,T score 1.1, Left Femoral Neck: Bone Mineral Density 0.799 g/cm/cm, T score -1.7, (T score greater or equal to -1.0: NORMAL) (T score from -1.1 to -2.4: OSTEOPENIA) (T score less than or equal to -2.5 to: OSTEOPOROSIS) Impression: Osteopenia Patients with diagnosis of osteoporosis or osteopenia should have regular bone mineral density assess ment. For those eligible for Medicare, routine testing is allowed once every 2 years. Testing frequ ency can be increased for patients who have rapidly progressing disease or for those who are receivin g medical therapy to restore bone mass. Reviewed by: Conor Narvaez MD on 08/31/2020 2:02 PM PDT Approved by: Conor Narvaez MD on 08/31/2020 2:02 PM PDT Station ID: [id number]
== END 2020-08-31 13:31 | disposition home or self-care (01) ==
LOC: DI 13:30
PROVIDERS: ATTEND Family Medicine
DX: M85.88 Other specified disorders of bone density and structure, other site (principal)

== ENCOUNTER 2020-10-17 14:13 | Outpatient (CLI) | payer MEDICARE ==
[2020-10-17 14:33] LABS: MUDS CUTOFF CONCENTRATIONS CUTOFF CONC BELOW:
[2020-10-17 14:35] LABS: BASOPHILS % (AUTO) 0.4 %; EOSINOPHILS % (AUTO) 0.3 %; HGB - HEMOGLOBIN 11.8 g/dL (12.0-16.0); LYMPHOCYTES % (AUTO) 34.9 %; MEAN CORPUSCULAR HEMOGLOBIN 27.7 pg (27.0-31.0); MEAN CORPUSCULAR HGB CONC 31.1 g/dL (32.0-36.0); MEAN CORPUSCULAR VOLUME 89.2 fL (81.0-99.0); MEAN PLATELET VOLUME 9.5 fL (7.9-10.8); MONOCYTES % (AUTO) 6.5 %; NEUTROPHILS % (AUTO) 57.2 %; PLT - PLATELET COUNT 245 10^3/uL (130-450); RED BLOOD COUNT 4.26 10^6/uL (4.20-5.40); RED CELL DISTRIBUTION WIDTH 14.9 % (12.0-15.0); WHITE BLOOD COUNT 15.3 x10^3/uL (4.8-10.8)
[2020-10-17 14:38] LABS: SLIDE REVIEW? Indicated
[2020-10-17 14:44] LABS: BILIRUBIN,URINE NEGATIVE (NEGATIVE); GLUCOSE, URINE (UA) >=1000 mg/dL (NEGATIVE); KETONES,URINE (UA) NEGATIVE (NEGATIVE); LEUKOCYTE ESTERASE, URINE NEGATIVE (NEGATIVE); NITRITE,URINE NEGATIVE (NEGATIVE); OCCULT BLOOD,URINE TRACE-INTA (NEGATIVE); PH,URINE 6.5 PH (5.0-7.5); PROTEIN,URINE 30 mg/dL (NEGATIVE); UROBILINOGEN,URINE 0.2 (NORMAL) E.U./dL (NORMAL)
[2020-10-17 14:45] LABS: CALCIUM 9.5 mg/dL (8.5-10.3); CLARITY,URINE CLEAR (CLEAR); CREATININE 2.4 mg/dL (0.4-1.0); POTASSIUM 4.7 mmol/L (3.5-5.0)
[2020-10-17 14:50] LABS: ABNORMAL LYMPHS % (MANUAL) 0 %; BAND NEUTROPHILS % (MANUAL) 0 %
[2020-10-17 14:53] LABS: DIFFERENTIAL COMMENT MANUAL DIFFERENTIAL; LYMPHOCYTES # (MANUAL) 4.7 10^3/uL (1.5-3.5); LYMPHOCYTES % (MANUAL) 22 %; MONOCYTES # (MANUAL) 0.3 10^3/uL (0.0-1.0); MYELOCYTES % (MANUAL) 1 %; NEUTROPHILS # (MANUAL) 10.1 10^3/uL (1.5-6.6); REACTIVE LYMPHS % (MANUAL) 9 %
[2020-10-17 14:56] LABS: AMORPHOUS SEDIMENT,UR Rare /LPF; BACTERIA,URINE Rare /HPF (None Seen); CASTS, URINE 0-2 Hyaline Casts /LPF; MUCUS,URINE Few Strands; RBC,URINE 0-5 /HPF (0-5); SQUAMOUS EPITHELIAL CELL,UR MOD Squamous (<= Few)
[2020-10-17 14:57] LABS: AMPHETAMINE SCREEN,URINE NEGATIVE (NEGATIVE); BARBITURATE SCREEN,UR NEGATIVE (NEGATIVE); BENZODIAZEPINES SCREEN, URINE NEGATIVE (NEGATIVE); COCAINE SCREEN URINE NEGATIVE (NEGATIVE); METHADONE SCREEN, URINE POSITIVE (NEGATIVE); METHAMPHETAMINES SCREEN, URINE NEGATIVE (NEGATIVE); OPIATE SCREEN, URINE NEGATIVE (NEGATIVE); OXYCODONE SCREEN, URINE NEGATIVE (NEGATIVE); PROPOXYPHENE SCREEN, URINE NEGATIVE (NEGATIVE); THC CANNABINOID SCREEN, URINE POSITIVE (NEGATIVE); TRICYCLIC ANTIDEPRESSANT,URINE NEGATIVE (NEGATIVE)
[2020-10-17 15:04] LABS: THYROID STIMULATING HORMONE 0.51 uIU/mL (0.34-5.60)
[2020-10-17 21:20] LABS: ESTIMATED AVERAGE GLUCOSE 212 mg/dL (70-100)
== END 2020-10-17 14:14 | disposition home or self-care (01) ==
LOC: LAB 14:13
PROVIDERS: ATTEND Student in an Organized Health Care Education/Training Program
DX: S82.899A Other fracture of unspecified lower leg, initial encounter for closed fracture (principal); M85.80 Other specified disorders of bone density and structure, unspecified site; R30.0 Dysuria; Z51.81 Encounter for therapeutic drug level monitoring; Z79.899 Other long term (current) drug therapy
CPT/HCPCS: 36415; 80048; 80306; 81001; 82306; 83036; 83970; 84443; 85025; 87086

== ENCOUNTER 2020-11-07 12:03 | Observation (INO) | payer MEDICARE ==
[2020-11-07] MEDS ORDERED: INSULIN REGULAR HUMAN 100 UNIT/1 ML 10 ML MDV IVP STA (13:11)
[2020-11-07] MEDS ORDERED: SODIUM CHLORIDE 0.9% 1,000 ML IV STA (13:11)
--- NOTE | 2020-11-07 13:12 | ED Physician Documentation ---
History of Present Illness - Stated complaint Stated Complaint: LOW BLOOD SUGAR - Chief complaint Chief Complaint: General - History obtained from History obtained from: Patient - Additonal information Additional information: 70-year-old woman has been diabetic for about 10 years. She uses an insulin pump. The pump stopped working a few days ago and she noted her blood sugar started to go up. She felt foggy so did not quite remember how to refill the pump. As such she has not had insulin in about 2 to 3 days. She feels nauseous but has not vomited. Otherwise she just feels foggy and "like trash." Denies any specific pain or chest pain. Review of Systems Ten Systems: 10 systems reviewed and negative Constitutional: reports: Reviewed and negative Nose: reports: Reviewed and negative Throat: reports: Reviewed and negative PD PAST MEDICAL HISTORY - Past Medical History Past Medical History: Yes Cardiovascular: Hypertension, Peripheral Vascular Disease, Other Neuro: Peripheral neuropathy Endocrine/Autoimmune: Type 2 diabetes [facility] [facility]: Other : Other Psych: Anxiety Musculoskeletal: Chronic back pain, Other - Past Surgical History Past Surgical History: No Ortho: Other - Present Medications Home Medications: Ambulatory Orders Medication Instructions Recorded Confirmed DULoxetine [Cymbalta] 60 mg PO DAILY 06/16/20 06/16/20 Diltiazem HCl [Diltiazem 12Hr ER] 1 tab PO DAILY 06/16/20 06/16/20 Gabapentin [Neurontin] 600 mg PO HS 06/16/20 06/16/20 Losartan/Hydrochlorothiazide 1 tab PO DAILY 06/16/20 06/16/20 [Hyzaar 100-12.5 Tablet] Methadone [Methadone Hcl] 5 mg PO BID 06/16/20 06/16/20 Rosuvastatin Calcium [Crestor] 40 mg PO DAILY 06/16/20 06/16/20 Spironolactone [Aldactone] 1 tab PO DAILY 06/16/20 06/16/20 clonazePAM [Clonazepam] 0.5 mg PO DAILY 06/16/20 06/16/20 traZODone [Desyrel] 1 tab PO PRN PRN 06/16/20 06/16/20 Acetaminophen [Tylenol] 650 - 975 mg PO Q4HR PRN 06/18/20 Aspirin [Jeancarlos] 325 mg PO BIDWM 06/18/20 Walker [Ultra-Light Rollator] 1 each MC DAILY #1 each 06/18/20 oxyCODONE [Roxicodone] 5 mg PO Q4HR PRN #30 mg 06/18/20 - Allergies Allergies/Adverse Reactions: Allergies Allergy/AdvReac Type Severity Reaction Status Date / Time No Known Drug Allergies Allergy Verified 11/07/20 12:13 - Social History Does the pt smoke?: No Smoking Status: Never smoker Does the pt drink ETOH?: No Does the pt have substance abuse?: No - Immunizations Immunizations are current?: Yes - POLST Patient has POLST: No POLST Status: Full Code PD ED PE NORMAL - Vitals Vital signs reviewed: Yes - General General: Alert and oriented X 3, No acute distress - HEENT HEENT: PERRL, EOMI - Neck Neck: Supple, no meningeal sign, No bony TTP - Cardiac Cardiac: Other (Occasional extrasystoles) - Respiratory Respiratory: No respiratory distress, Clear bilaterally - Abdomen Abdomen: Non tender - Back Back: No CVA TTP, No spinal TTP - Derm Derm: Normal color, Warm and dry - Neuro Neuro: Alert and oriented X 3, Normal speech Results - Vitals Vitals: Vital Signs - 24 hr 11/07/20 11/07/20 11/07/20 12:09 12:58 13:01 Temperature 37.0 C 37.0 C 37.8 C Heart Rate 114 H 114 H 104 H Respiratory 18 18 19 Rate Blood Pressure 128/55 L 128/55 L 136/74 H O2 Saturation 96 96 96 Oxygen O2 Source Room air - Labs Labs: Laboratory Tests 11/07/20 11/07/20 11/07/20 12:15 13:20 13:20 WBC 17.0 H RBC 4.27 Hgb 11.9 L Hct 36.5 L MCV 85.5 MCH 27.9 MCHC 32.6 RDW 15.2 H Plt Count 229 MPV 10.1 Neut # (Auto) 10.6 H Lymph # (Auto) 5.1 H [place] # (Auto) 1.1 H Eos # (Auto) 0.0 Baso # (Auto) 0.1 Absolute Nucleated RBC 0.00 Nucleated RBC % 0.0 Manual Slide Review Indicated WBC Morphology NORMAL APPEARANCE Platelet Estimate NORMAL (130-450,000) Platelet Morphology NORMAL APPEARANCE RBC Morph Micro Appear NORMAL APPEARANCE VBG pH VBG pCO2 VBG pO2 VBG HCO3 VBG Total CO2 VBG O2 Saturation VBG Base Excess Sodium 129 L Potassium 3.6 Chloride 90 L Carbon Dioxide 25 Anion Gap 14.0 H BUN 39 H Creatinine 2.6 H Estimated GFR (MDRD) 18 L Glucose 243 H POC Whole Bld Glucose 332 H Calcium 9.9 Total Bilirubin 0.4 AST 21 ALT 19 Alkaline Phosphatase 76 Total Protein 8.4 H Albumin 3.8 Globulin 4.6 H Albumin/Globulin Ratio 0.8 L Lipase 23 Urine Color Urine Clarity Urine pH Ur Specific [place] Urine Protein Urine Glucose (UA) Urine Ketones Urine Occult Blood Urine Nitrite Urine Bilirubin Urine Urobilinogen Ur Leukocyte Esterase Urine RBC Urine WBC Ur Squamous Epith Cells Urine Bacteria Ur Microscopic Review Urine Culture Comments Serum Ketones NEGATIVE 11/07/20 11/07/20 11/07/20 13:20 14:22 14:29 WBC RBC Hgb Hct MCV MCH MCHC RDW Plt Count MPV Neut # (Auto) Lymph # (Auto) [place] # (Auto) Eos # (Auto) Baso # (Auto) Absolute Nucleated RBC Nucleated RBC % Manual Slide Review WBC Morphology Platelet Estimate Platelet Morphology RBC Morph Micro Appear VBG pH 7.418 H VBG pCO2 41.5 VBG pO2 33.3 VBG HCO3 26.2 VBG Total CO2 27.5 VBG O2 Saturation 70.3 VBG Base Excess 1.5 Sodium Potassium Chloride Carbon Dioxide Anion Gap BUN Creatinine Estimated GFR (MDRD) Glucose POC Whole Bld Glucose 114 H Calcium Total Bilirubin AST ALT Alkaline Phosphatase Total Protein Albumin Globulin Albumin/Globulin Ratio Lipase Urine Color YELLOW Urine Clarity CLOUDY Urine pH 5.5 Ur Specific [place] 1.020 Urine Protein 100 H Urine Glucose (UA) 500 H Urine Ketones NEGATIVE Urine Occult Blood MODERATE H Urine Nitrite POSITIVE H Urine Bilirubin NEGATIVE Urine Urobilinogen 0.2 (NORMAL) Ur Leukocyte Esterase SMALL H Urine RBC 6-10 H Urine WBC 11-25 H Ur Squamous Epith Cells FEW Squamous Urine Bacteria Many H Ur Microscopic Review INDICATED Urine Culture Comments INDICATED Serum Ketones PD MEDICAL DECISION MAKING - ED course ED course: 70-year-old woman presents with a weeks worth of UTI symptoms, her insulin pump ran out a few days ago and she just could not figure out how to refill it despite having done this routinely for the last 10 years. It was presumed on arrival that the encephalopathy was due to the hyperglycemia, but with resolution of her got hyperglycemia with IV fluids and IV insulin, her encephalopathy did not resolve. She has evidence of UTI and leukocytosis. As such will placed in obs to r/o sepsis and follow resolution of encephalopathy. Departure - Departure Disposition: ED Place in Observation Clinical Impression: Acute on chronic renal insufficiency, Encephalopathy Type 2 diabetes mellitus Qualifiers: Diabetes mellitus group home insulin use: with terminologist use Diabetes mellitus complication status: with hyperglycemia Qualified Code(s): E11.65 - Type 2 diabetes mellitus with hyperglycemia; Z79.4 - [facility] (current) use of insulin UTI (urinary tract infection) Qualifiers: Urinary tract infection type: acute cystitis Hematuria presence: without hematuria Qualified Code(s): N30.00 - Acute cystitis without hematuria Condition: Serious
[2020-11-07 13:40] LABS: VBG BASE EXCESS 1.5 mmol/L (-2 - +2); VBG HCO3 26.2 mmol/L (23-28); VBG PCO2 41.5 mmHg (41-51); VBG PH 7.418 (7.31-7.41); VBG PO2 33.3 mmHg (25-47); VBG TOTAL CO2 27.5 mmol/L (24-29)
[2020-11-07 13:41] LABS: BASOPHILS # (AUTO) 0.1 10^3/uL (0.0-0.1); BASOPHILS % (AUTO) 0.3 %; HCT - HEMATOCRIT 36.5 % (37.0-47.0); HGB - HEMOGLOBIN 11.9 g/dL (12.0-16.0); LYMPHOCYTES # (AUTO) 5.1 10^3/uL (1.5-3.5); MEAN CORPUSCULAR HEMOGLOBIN 27.9 pg (27.0-31.0); MEAN CORPUSCULAR HGB CONC 32.6 g/dL (32.0-36.0); MEAN CORPUSCULAR VOLUME 85.5 fL (81.0-99.0); MEAN PLATELET VOLUME 10.1 fL (7.9-10.8); MONOCYTES # (AUTO) 1.1 10^3/uL (0.0-1.0); MONOCYTES % (AUTO) 6.3 %; NEUTROPHILS # (AUTO) 10.6 10^3/uL (1.5-6.6); NEUTROPHILS % (AUTO) 62.5 %; PLT - PLATELET COUNT 229 10^3/uL (130-450); RED BLOOD COUNT 4.27 10^6/uL (4.20-5.40); RED CELL DISTRIBUTION WIDTH 15.2 % (12.0-15.0); VBG OXYGEN SATURATION 70.3 % (60-80)
[2020-11-07 13:42] LABS: PLATELET ESTIMATE, MANUAL NORMAL (130-450,000) (NORMAL); PLATELET MORPHOLOGY NORMAL APPEARANCE (NORMAL); RBC MORPHOLOGY (MULTIPLE) NORMAL APPEARANCE (NORMAL); SLIDE REVIEW? Indicated; WBC MORPHOLOGY (MULTIPLE) NORMAL APPEARANCE (NORMAL)
[2020-11-07 13:48] LABS: ALBUMIN 3.8 g/dL (3.2-5.5); ALBUMIN/GLOBULIN RATIO 0.8 (1.0-2.2); ALKALINE PHOSPHATASE 76 IU/L (42-121); ALT ALANINE AMINOTRANSFERASE 19 IU/L (10-60); AST ASPARTATE AMINOTRANSFERASE 21 IU/L (10-42); BILIRUBIN,TOTAL 0.4 mg/dL (0.2-1.0); BUN - BLOOD UREA NITROGEN 39 mg/dL (6-20); CALCIUM 9.9 mg/dL (8.5-10.3); CARBON DIOXIDE - CO2 25 mmol/L (21-32); CHLORIDE 90 mmol/L (101-111); CREATININE 2.6 mg/dL (0.4-1.0); GFR - MDRD 18 (>89); GLUCOSE 243 mg/dL (70-100); LIPASE 23 U/L (22-51); POTASSIUM 3.6 mmol/L (3.5-5.0); SODIUM 129 mmol/L (135-145); TOTAL PROTEIN 8.4 g/dL (6.7-8.2)
[2020-11-07 13:52] LABS: KETONES, SERUM (ACETEST) NEGATIVE (NEGATIVE)
[2020-11-07 14:46] LABS: BILIRUBIN,URINE NEGATIVE (NEGATIVE); GLUCOSE, URINE (UA) 500 mg/dL (NEGATIVE); KETONES,URINE (UA) NEGATIVE (NEGATIVE); LEUKOCYTE ESTERASE, URINE SMALL (NEGATIVE); NITRITE,URINE POSITIVE (NEGATIVE); OCCULT BLOOD,URINE MODERATE (NEGATIVE); PH,URINE 5.5 PH (5.0-7.5); PROTEIN,URINE 100 mg/dL (NEGATIVE); UROBILINOGEN,URINE 0.2 (NORMAL) E.U./dL (NORMAL)
[2020-11-07 14:50] LABS: CLARITY,URINE CLOUDY (CLEAR)
[2020-11-07 15:01] LABS: BACTERIA,URINE Many /HPF (None Seen); SQUAMOUS EPITHELIAL CELL,UR FEW Squamous (<= Few)
[2020-11-07] MEDS ORDERED: cefTRIAXone 1 GM in SODIUM CHLORIDE 0.9% MINIBAG 100 ML IV STA (15:24)
[2020-11-07] MEDS ORDERED: cefTRIAXone 1 GM VIAL ONE (15:33)
[2020-11-07] MEDS ORDERED: SODIUM CHLORIDE FLUSH 0.9% 10 ML SYRINGE IVP PRN (16:02)
[2020-11-07] MEDS ORDERED: oxyCODONE 5 MG TABLET PO PRN (16:02)
[2020-11-07] MEDS ORDERED: ACETAMINOPHEN 325 MG TABLET PO PRN (16:02)
[2020-11-07] MEDS ORDERED: traZODone 50 MG TABLET PO PRN (16:05)
[2020-11-07 17:00] LABS: B. PARAPERTUSSIS- RESP PCR PAN NOT DETECTED; B. PERTUSSIS- RESP PCR PANEL NOT DETECTED; C. PNEUMONIAE- RESP PCR PANEL NOT DETECTED; CORONAVIRUS 229E-RESP PCR NOT DETECTED; CORONAVIRUS HKU1-RESP PCR NOT DETECTED; CORONAVIRUS NL63-RESP PCR NOT DETECTED; CORONAVIRUS OC43-RESP PCR NOT DETECTED; HUMAN METAPNEUMOVIRUS NOT DETECTED; INFLUENZA A- RESP PCR PANEL NOT DETECTED; INFLUENZA B - RESP PCR PANEL NOT DETECTED; M. PNEUMONIAE- RESP PCR PANEL NOT DETECTED; PARAINFLUENZA VIRUS 1 NOT DETECTED; PARAINFLUENZA VIRUS 2 NOT DETECTED; PARAINFLUENZA VIRUS 3 NOT DETECTED; PARAINFLUENZA VIRUS 4 NOT DETECTED; RHINOVIRUS/ENTEROVIRUS NOT DETECTED; RSV- RESP PCR PANEL NOT DETECTED; SARS-CoV-2 -RESP PCR PANEL NOT DETECTED
[2020-11-07] MEDS: ASPIRIN 325 MG TABLET PO SCH (17:16)
[2020-11-07] MEDS: SODIUM CHLORIDE FLUSH 0.9% 10 ML SYRINGE IVP SCH (17:16)
[2020-11-07] MEDS: SODIUM CHLORIDE 0.9% 1,000 ML IV SCH (17:16)
--- NOTE | 2020-11-07 18:23 | HISTORY & PHYSICAL EXAMINATION ---
Chief Complaint - Chief Complaint Chief Complaint: Confusion, Fatigue, Low blood sugar History of Present Illness - Admitted From Admitted From:: ED - History Obtained From Records Reviewed: ED History obtained from: Patient and Dr Zarate in the ED Exam Limitations: Pt is somewhat poor historian - History of Present Illness HPI Comment/Other: Patient is a 70-year-old woman with past medical history of type 2 diabetes me llitus, diabetic peripheral neuropathy with chronic pain on methadone, hypertension, hyperlipidemia, CKD who presented to the emergency room after she started noticing symptoms of fatigue, mild confusion, and was having trouble with her insulin pump and thinks her blood sugar was going to low. She states that her insulin pump broke a few days ago and she is not been able to give herself supplemental subcutaneous insulin and thought her blood sugar was actually going "out of whack". She presented to the emergency room for further evaluation.Her labs were suggestive of hyponatremia with a sodium of 129, BUN/creatinine elevation of 39 and 2.6 respectively, And initial blood glucose of 332. Additionally she was complaining of some recent dysuria and her WBC showed 17,000 and urinalysis was highly suggestive of UTI. She denied any flank pain, chest pain, shortness of breath, nausea, vomiting, anorexia, or other systemic complaints. Given the hyperglycemia, positive UTI, and difficulty with managing her insulin, observation bed was requested for further management and for diabetic education to help the patient get back on track with her insulin. 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 Dad approximately 65 complications of diabetes. 5 (1/2) sisters that she says are all healthy without DM, HTN, HPL, CAD. 2 children. One son has neurofibromatosis. Living Situation: With spouse/s.o. Social History Notes: From [place]. Considers herself in [facility] daughter. 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 He is 20 years older than her. She started getting worried about what would be like to take care of an elderly in [place] so [place]. She regrets moving back but she really misses her house in [place]. Her is in fabulous health. Better than her. She started smoking at the age of 14 and smoked about a pack a week until the age of 38. She has no history of alcohol abuse. She has no history of recreational substance abuse. - Substance History Use: Uses substance without health or social issues: NONE - POLST Patient has POLST: No POLST Status: Full Code Meds/Allgy - Home Medications Home Medications: Ambulatory Orders Medication Instructions Recorded Confirmed DULoxetine [Cymbalta] 60 mg PO DAILY 06/16/20 06/16/20 Diltiazem HCl [Diltiazem 12Hr ER] 1 tab PO DAILY 06/16/20 06/16/20 Gabapentin [Neurontin] 600 mg PO HS 06/16/20 06/16/20 Losartan/Hydrochlorothiazide 1 tab PO DAILY 06/16/20 06/16/20 [Hyzaar 100-12.5 Tablet] Methadone [Methadone Hcl] 5 mg PO BID 06/16/20 06/16/20 Rosuvastatin Calcium [Crestor] 40 mg PO DAILY 06/16/20 06/16/20 Spironolactone [Aldactone] 1 tab PO DAILY 06/16/20 06/16/20 clonazePAM [Clonazepam] 0.5 mg PO DAILY 06/16/20 06/16/20 traZODone [Desyrel] 1 tab PO PRN PRN 06/16/20 06/16/20 Acetaminophen [Tylenol] 650 - 975 mg PO Q4HR PRN 06/18/20 Aspirin [Jeancarlos] 325 mg PO BIDWM 06/18/20 Walker [Ultra-Light Rollator] 1 each MC DAILY #1 each 06/18/20 oxyCODONE [Roxicodone] 5 mg PO Q4HR PRN #30 mg 06/18/20 - Allergies Allergies/Adverse Reactions: Allergies Allergy/AdvReac Type Severity Reaction Status Date / Time No Known Drug Allergies Allergy Verified 11/07/20 12:13 Review of Systems - Constitutional Constitutional: reports: Fatigue, Malaise, Weakness. denies: Fever, Chills - Cardiovascular Cariovascular: denies: Chest pain - Respiratory Respiratory: denies: SOB at rest, SOB with exertion - Gastrointestinal Gastrointestinal: denies: Abdominal pain, Diarrhea, Change in bowel habits - Musculoskeletal Musculoskeletal: reports: Muscle pain - Neurological Neurological: reports: General weakness, Headache. denies: Focal weakness, Dizz iness Prior Level of Functionality: Fully independent and ambulatory Exam - Vital Signs Reviewed Vital Signs: Yes Vital Signs: Vital Signs x48h Temp Pulse Pulse Resp BP BP Pulse Ox 11/07/20 17:10 37.3 C 108 H 16 139/52 H 100 11/07/20 16:50 36.6 C 100 18 129/53 L 98 11/07/20 15:00 100 16 129/53 L 98 11/07/20 13:01 37.8 C 104 H 19 136/74 H 96 11/07/20 12:58 37.0 C 114 H 18 128/55 L 96 11/07/20 12:09 37.0 C 114 H 18 128/55 L 96 - Physical Exam General Appearance: positive: No acute distress Eyes Bilateral: positive: Normal inspection Respiratory: positive: Chest non-tender, No respiratory distress, Breath sounds nml Cardiovascular: positive: Regular rate & rhythm, No murmur, No gallop, Irregularly irregular Peripheral Pulses: positive: 2+ Abdomen: positive: Non-tender, No organomegaly, Nml bowel sounds, No distention Back: positive: Nml inspection Extremities: positive: Non-tender, Full ROM, Nml appearance Neurologic/Psychiatric: positive: Oriented x3, Other (Oriented x3 but subjectively reports feeling foggy and sluggish. She appears tired) Conclusion/Plan - Problem List (1) Type 2 diabetes mellitus Conclusion/Plan: Patient presented hyperglycemic due to insulin pump failure. She states she is a type II diabetic and has been using this pump for 12 years but was getting confused and despite having no problems managing the pump in the past, in the last few days she states she has been feeling foggy and unable to manage the pump. Spoke with field operations coordinator who was kind enough to see the patient to provide some input. She states she has seen this patient in the past a few months ago and had given her instructions on how to contact the vendor to get her pump sorted out but they never followed through. She is going to help us with the pump tomorrow but in the meantime we will cover her with insulin sliding scale. We will check an A1c in the a.m. and monitor blood sugars and insulin levels used on the correctional scale to help dose discharge dosing of insulin. Qualifiers: Diabetes mellitus technician terminal and repeater insulin use: with alf use Diabetes mellitus complication status: with hyperglycemia Qualified Code(s): E11.65 - Type 2 diabetes mellitus with hyperglycemia; Z79.4 - care home (current) use of insulin (2) Acute on chronic renal insufficiency Conclusion/Plan: Patient with known history of CKD presenting with evidence of dehydration and acute on chronic renal insufficiency with creatinine elevated at 2.6 with baseline closer to 1.8-2.0. Address with normal saline infusion 100 mL/h repeat labs in the a.m. and avoid nephrotoxic agents. (3) Encephalopathy Conclusion/Plan: Very mild encephalopathic features. She is fairly well oriented but somewhat sluggish and foggy. Likely secondary to fluctuating blood sugars and dehydration. No indication for imaging or further AOC PLANS INTELLIGENCE OFFICER work-up at this time but will continue to monitor closely and reassess if any neurological changes. (4) UTI (urinary tract infection) Conclusion/Plan: UA highly suggestive of UTI. Continue empiric Rocephin started in the ED. Follow-up urine culture to narrow antibiotics as appropriate. Qualifiers: Urinary tract infection type: acute cystitis Hematuria presence: without hematuria Qualified Code(s): N30.00 - Acute cystitis without hematuria - Lab Results Lab results reviewed: Yes Fish Bones: 11/07/20 13:20 11/07/20 13:20 - Diagnostic Imaging Results Diagnostic Imaging Results: positive: Final report reviewed Core Measures - Anticipated LOS I expect patient to be DC'd or transferred within 96 hours.: Yes - DVT/VTE - Prophylaxis VTE/DVT Device ordered at admit?: Yes
[2020-11-07] MEDS: GABAPENTIN 300 MG CAPSULE PO SCH (21:10)
[2020-11-07] MEDS: INSULIN ASPART 300 UNIT/3 ML PEN SUBQ SCH (21:10)
[2020-11-07] MEDS: METHADONE 5 MG TABLET PO SCH (21:10)
[2020-11-07] MEDS: TEMAZEPAM 15 MG CAPSULE PO PRN (21:10)
[2020-11-07] MEDS: ATORVASTATIN 40 MG TABLET PO SCH (21:10)
[2020-11-08] MEDS: SODIUM CHLORIDE FLUSH 0.9% 10 ML SYRINGE IVP SCH ×4 (00:39→23:29)
[2020-11-08] MEDS: SODIUM CHLORIDE 0.9% 1,000 ML IV SCH ×3 (03:01→23:28)
[2020-11-08] MEDS: INSULIN ASPART 300 UNIT/3 ML PEN SUBQ SCH ×2 (08:19→12:02)
[2020-11-08 08:34] LABS: BASOPHILS % (AUTO) 0.2 %; EOSINOPHILS % (AUTO) 0.3 %; HCT - HEMATOCRIT 29.6 % (37.0-47.0); HGB - HEMOGLOBIN 9.6 g/dL (12.0-16.0); LYMPHOCYTES # (AUTO) 4.1 10^3/uL (1.5-3.5); LYMPHOCYTES % (AUTO) 33.8 %; MEAN CORPUSCULAR HEMOGLOBIN 28.2 pg (27.0-31.0); MEAN CORPUSCULAR HGB CONC 32.4 g/dL (32.0-36.0); MEAN CORPUSCULAR VOLUME 87.1 fL (81.0-99.0); MEAN PLATELET VOLUME 10.5 fL (7.9-10.8); MONOCYTES # (AUTO) 1.2 10^3/uL (0.0-1.0); NEUTROPHILS # (AUTO) 6.7 10^3/uL (1.5-6.6); PLT - PLATELET COUNT 197 10^3/uL (130-450); RED CELL DISTRIBUTION WIDTH 15.3 % (12.0-15.0); WHITE BLOOD COUNT 12.1 x10^3/uL (4.8-10.8)
[2020-11-08] MEDS: diltiaZEM CD 120 MG CAPSULE PO SCH (08:45)
[2020-11-08] MEDS: ASPIRIN 325 MG TABLET PO SCH ×2 (08:45→17:00)
[2020-11-08] MEDS: DULoxetine 30 MG CAPSULE PO SCH (08:45)
[2020-11-08] MEDS: cefTRIAXone 2 GM in SODIUM CHLORIDE 0.9% MINIBAG 100 ML IV SCH (08:46)
[2020-11-08] MEDS: METHADONE 5 MG TABLET PO SCH ×2 (08:47→21:26)
[2020-11-08 08:50] LABS: CALCIUM 8.5 mg/dL (8.5-10.3); CREATININE 2.2 mg/dL (0.4-1.0); POTASSIUM 3.8 mmol/L (3.5-5.0)
[2020-11-08] MEDS ORDERED: cefTRIAXone 2 GM VIAL IVP SCH (09:00)
[2020-11-08 14:15] LABS: ESTIMATED AVERAGE GLUCOSE 240 mg/dL (70-100)
--- NOTE | 2020-11-08 15:22 | PHARMACY PROGRESS NOTE ---
- Best Possible Medication History Admit Date and Time: 11/07/20 1602 Processed by: Pharmacy Medication History completed: Yes Patient Interview: Completed Patient interviewed and seemed familiar with medications. However, there are no recent insurance records or recent prescriptions found in [facility] for these medications. Patient says she fills at [facility] and [facility] but both pharmacies claimed they did not have any recent records of maintenance medicati ons for the patient. Medication list has been updated based on what patient says she takes but I have left them unconfirmed since neither pharmacy is able to confirm filling these medications. As the person ultimately responsible for medication therapy, providers are able to order a medication from an existing home medication list in [facility] via the "Reconcile Routine" prior to Confirmation of that medication by network support administrator. Such practice is discouraged except when the physician, in their clinical judgment, deems that a medical need exists for a medication without regard to previous use.
--- NOTE | 2020-11-08 15:31 | PROVIDER PROGRESS NOTE ---
Assessment/Plan - Problem List (1) Bacteremia Assessment/Plan: pt Blood culture show negative rods positive. Patient has no fever, patient WBC is trended down. Patient's tachycardia also resolved. We will continue antibiotics intravenously. We may repeat a blood culture on tomorrow but it is negative rods. (2)sepsis pt Sepsis is likely resolved. Patient WBC is trending down, Patient has no fever,Patient hemodynamic stable, Patient's tachycardia is resolved. We will continue intravenous antibiotics, add probiotics for patient (3) UTI (urinary tract infection) UA highly suggestive of UTI. Continue empiric Rocephin started in the ED. Follow-up urine culture to narrow antibiotics. (4) Encephalopathy Resolved. Patient is alert and orientated +4 (5) Type 2 diabetes mellitus RN life educator put new insulin into the pump, And pump is started. We will hold sliding-scale right now, Continue glucose check, Closely monitor whether insulin pump is working (6) Acute on chronic renal insufficiency Improved, creatinine 2.2 from 2.6 at admission,continue normal saline infusion 100 mL/h repeat labs in the a.m. and avoid nephrotoxic agents. - Current Meds Current Meds: Current Medications Generic Name Dose Route Start Last Admin Trade Name Freq PRN Reason Stop Dose Admin Aspirin 325 mg 11/07/20 17:00 11/08/20 08:45 Aspirin 325 Mg Tablet PO 325 mg BIDWM ANTIONETTE Administration Atorvastatin Calcium 80 mg 11/07/20 21:00 11/07/20 21:10 Atorvastatin 40 Mg Tablet PO 80 mg QPM ANTIONETTE Administration Diltiazem HCl 120 mg 11/08/20 09:00 11/08/20 08:45 Diltiazem Cd 120 Mg Capsule PO 120 mg DAILY ANTIONETTE Administration Duloxetine HCl 60 mg 11/08/20 09:00 11/08/20 08:45 Duloxetine 30 Mg Capsule PO 60 mg DAILY ANTIONETTE Administration Gabapentin 600 mg 11/07/20 21:00 11/07/20 21:10 Gabapentin 300 Mg Capsule PO 600 mg HS ANTIONETTE Administration Sodium Chloride 1,000 mls @ 100 mls/hr 11/07/20 17:00 11/08/20 12:37 Normal Saline 0.9% IV 100 mls/hr .Q10H ANTIONETTE Administration Ceftriaxone Sodium 2 gm/ 100 mls @ 200 mls/hr 11/08/20 09:00 11/08/20 09:41 Sodium Chloride IV Infused DAILY ANTIONETTE Infusion Methadone HCl 5 mg 11/07/20 21:00 11/08/20 08:47 Methadone 5 Mg Tablet PO 5 mg BID ANTIONETTE Administration Sodium Chloride 10 ml 11/07/20 17:00 11/08/20 08:51 Sodium Chloride Flush 0.9% 10 Ml Syringe IVP Not Given 0100,0900,1700 ANTIONETTE Temazepam 15 mg 11/07/20 18:33 11/07/20 21:10 Temazepam 15 Mg Capsule PO 15 mg QPM PRN Administration Insomnia - Lab Result Fish Bone Diagrams: 11/08/20 05:30 11/08/20 05:30 - Additional Planning My Orders: My Active Orders 11/09/20 05:00 BMP - BASIC METABOLIC PANEL [CHEM] DAILYLAB CBC - COMP BLD CT W/AUTO DIFF [HEME] DAILYLAB 11/10/20 05:00 BMP - BASIC METABOLIC PANEL [CHEM] DAILYLAB CBC - COMP BLD CT W/AUTO DIFF [HEME] DAILYLAB 11/11/20 05:00 BMP - BASIC METABOLIC PANEL [CHEM] DAILYLAB CBC - COMP BLD CT W/AUTO DIFF [HEME] DAILYLAB 11/12/20 05:00 BMP - BASIC METABOLIC PANEL [CHEM] DAILYLAB CBC - COMP BLD CT W/AUTO DIFF [HEME] DAILYLAB Subjective - Subjective Patient Reports: Feeling Better Objective Vital Signs: Vital Signs - 24 hr 11/07/20 11/07/20 11/07/20 16:50 17:10 20:46 Temperature 36.6 C 37.3 C 37.1 C Heart Rate 100 Heart Rate [ 108 H 110 H Brachial] Respiratory 18 16 20 Rate Blood Pressure 129/53 L Blood Pressure 111/46 L [Left Brachial artery] Blood Pressure 139/52 H [Right Brachial artery] O2 Saturation 98 100 96 11/08/20 11/08/20 11/08/20 00:39 05:28 07:19 Temperature 36.5 C 37.2 C 37.3 C Heart Rate Heart Rate [ 88 90 98 Brachial] Respiratory 20 18 16 Rate Blood Pressure Blood Pressure 115/46 L 131/55 H [Left Brachial artery] Blood Pressure 111/43 L [Right Brachial artery] O2 Saturation 94 96 98 11/08/20 12:38 Temperature 37.3 C Heart Rate Heart Rate [ 91 Brachial] Respiratory 12 Rate Blood Pressure Blood Pressure [Left Brachial artery] Blood Pressure 108/51 L [Right Brachial artery] O2 Saturation 97 Oxygen O2 Source Room air I&O (Last 24 Hrs): Intake and Output Totals x24h 11/06/20 11/07/20 11/08/20 23:59 23:59 23:59 Intake Total 5870.625 7605 Output Total 400 1250 Balance 2721.432 1692 General: Alert, Oriented x3, Cooperative, No acute distress HEENT: Atraumatic Neck: Supple Lymphatic: no adenopathy Neuro: Alert, Non Focal, Oriented Times 3 Cardiovascular: Regular rate, Normal S1, Normal S2 Respiratory: Chest non-tender, No respiratory distress Abdomen: Normal bowel sounds, Soft, No tenderness Extremities: Normal pulses - Results Results: Laboratory Results WBC 12.1 x10^3/uL (4.8-10.8) H 11/08/20 05:30 RBC 3.40 10^6/uL (4.20-5.40) L 11/08/20 05:30 Hgb 9.6 g/dL (12.0-16.0) L 11/08/20 05:30 Hct 29.6 % (37.0-47.0) L 11/08/20 05:30 MCV 87.1 fL (81.0-99.0) 11/08/20 05:30 MCH 28.2 pg (27.0-31.0) 11/08/20 05:30 MCHC 32.4 g/dL (32.0-36.0) 11/08/20 05:30 RDW 15.3 % (12.0-15.0) H 11/08/20 05:30 Plt Count 197 10^3/uL (130-450) 11/08/20 05:30 MPV 10.5 fL (7.9-10.8) 11/08/20 05:30 Neut # (Auto) 6.7 10^3/uL (1.5-6.6) H 11/08/20 05:30 Lymph # (Auto) 4.1 10^3/uL (1.5-3.5) H 11/08/20 05:30 [place] # (Auto) 1.2 10^3/uL (0.0-1.0) H 11/08/20 05:30 Eos # (Auto) 0.0 10^3/uL (0.0-0.7) 11/08/20 05:30 Baso # (Auto) 0.0 10^3/uL (0.0-0.1) 11/08/20 05:30 Absolute Nucleated RBC 0.00 x10^3/uL 11/08/20 05:30 Nucleated RBC % 0.0 /100WBC 11/08/20 05:30 Manual Slide Review Indicated 11/07/20 13:20 WBC Morphology NORMAL APPEARANCE (NORMAL) 11/07/20 13:20 Platelet Estimate NORMAL (130-450,000) (NORMAL) 11/07/20 13:20 Platelet Morphology NORMAL APPEARANCE (NORMAL) 11/07/20 13:20 RBC Morph Micro Appear NORMAL APPEARANCE (NORMAL) 11/07/20 13:20 VBG pH 7.418 (7.31-7.41) H 11/07/20 13:20 VBG pCO2 41.5 mmHg (41-51) 11/07/20 13:20 VBG pO2 33.3 mmHg (25-47) 11/07/20 13:20 VBG HCO3 26.2 mmol/L (23-28) 11/07/20 13:20 VBG Total CO2 27.5 mmol/L (24-29) 11/07/20 13:20 VBG O2 Saturation 70.3 % (60-80) 11/07/20 13:20 VBG Base Excess 1.5 mmol/L (-2 - +2) 11/07/20 13:20 Sodium 134 mmol/L (135-145) L 11/08/20 05:30 Potassium 3.8 mmol/L (3.5-5.0) 11/08/20 05:30 Chloride 101 mmol/L (101-111) 11/08/20 05:30 Carbon Dioxide 24 mmol/L (21-32) 11/08/20 05:30 Anion Gap 9.0 (6-13) 11/08/20 05:30 BUN 30 mg/dL (6-20) H 11/08/20 05:30 Creatinine 2.2 mg/dL (0.4-1.0) H 11/08/20 05:30 Estimated GFR (MDRD) 22 (>89) L 11/08/20 05:30 Glucose 279 mg/dL (70-100) H 11/08/20 05:30 POC Whole Bld Glucose 285 mg/dL (70 - 100) H 11/08/20 11:11 Estimat Average Glucose 240 mg/dL (70-100) H 11/08/20 05:30 Hemoglobin A1c % 10.0 % (4.27-6.07) H 11/08/20 05:30 Lactic Acid 1.6 mmol/L (0.5-2.2) 11/07/20 16:02 Calcium 8.5 mg/dL (8.5-10.3) 11/08/20 05:30 Total Bilirubin 0.4 mg/dL (0.2-1.0) 11/07/20 13:20 AST 21 IU/L (10-42) 11/07/20 13:20 ALT 19 IU/L (10-60) 11/07/20 13:20 Alkaline Phosphatase 76 IU/L (42-121) 11/07/20 13:20 Total Protein 8.4 g/dL (6.7-8.2) H 11/07/20 13:20 Albumin 3.8 g/dL (3.2-5.5) 11/07/20 13:20 Globulin 4.6 g/dL (2.1-4.2) H 11/07/20 13:20 Albumin/Globulin Ratio 0.8 (1.0-2.2) L 11/07/20 13:20 Lipase 23 U/L (22-51) 11/07/20 13:20 Urine Color YELLOW 11/07/20 14:22 Urine Clarity CLOUDY (CLEAR) 11/07/20 14:22 Urine pH 5.5 PH (5.0-7.5) 11/07/20 14:22 Ur Specific [place] 1.020 (1.002-1.030) 11/07/20 14:22 Urine Protein 100 mg/dL (NEGATIVE) H 11/07/20 14:22 Urine Glucose (UA) 500 mg/dL (NEGATIVE) H 11/07/20 14:22 Urine Ketones NEGATIVE mg/dL (NEGATIVE) 11/07/20 14:22 Urine Occult Blood MODERATE (NEGATIVE) H 11/07/20 14:22 Urine Nitrite POSITIVE (NEGATIVE) H 11/07/20 14:22 Urine Bilirubin NEGATIVE (NEGATIVE) 11/07/20 14:22 Urine Urobilinogen 0.2 (NORMAL) E.U./dL (NORMAL) 11/07/20 14:22 Ur Leukocyte Esterase SMALL (NEGATIVE) H 11/07/20 14:22 Urine RBC 6-10 /HPF (0-5) H 11/07/20 14:22 Urine WBC 11-25 /HPF (0-5) H 11/07/20 14:22 Ur Squamous Epith Cells FEW Squamous (<= Few) 11/07/20 14:22 Urine Bacteria Many /HPF (None Seen) H 11/07/20 14:22 Ur Microscopic Review INDICATED 11/07/20 14:22 Urine Culture Comments INDICATED 11/07/20 14:22 Nasal Adenovirus (PCR) NOT DETECTED 11/07/20 15:56 Nasal B. parapertussis DNA (PCR) NOT DETECTED 11/07/20 15:56 Nasal Coronavir 229E PCR NOT DETECTED 11/07/20 15:56 Nasal Coronavir HKU1 PCR NOT DETECTED 11/07/20 15:56 Nasal Coronavir NL63 PCR NOT DETECTED 11/07/20 15:56 Nasal Coronavir OC43 PCR NOT DETECTED 11/07/20 15:56 Nasal Enterovir/Rhinovir PCR NOT DETECTED 11/07/20 15:56 Nasal Influenza B PCR NOT DETECTED 11/07/20 15:56 Nasal Influenza A PCR NOT DETECTED 11/07/20 15:56 Nasal Parainfluen 1 PCR NOT DETECTED 11/07/20 15:56 Nasal Parainfluen 2 PCR NOT DETECTED 11/07/20 15:56 Nasal Parainfluen 3 PCR NOT DETECTED 11/07/20 15:56 Nasal Parainfluen 4 PCR NOT DETECTED 11/07/20 15:56 Nasal RSV (PCR) NOT DETECTED 11/07/20 15:56 Nasal B.pertussis DNA PCR NOT DETECTED 11/07/20 15:56 Nasal C.pneumoniae (PCR) NOT DETECTED 11/07/20 15:56 Ceferino Human Metapneumo PCR NOT DETECTED 11/07/20 15:56 Nasal M.pneumoniae (PCR) NOT DETECTED 11/07/20 15:56 Nasal SARS-CoV-2 (PCR) NOT DETECTED 11/07/20 15:56 Serum Ketones NEGATIVE (NEGATIVE) 11/07/20 13:20 - Procedures Procedures: Procedures REPOSITION RIGHT TIBIA WITH INT FIX, OPEN APPROACH (06/16/20) Sepsis Event Note (H) - Evaluation Current Stage of Sepsis: Resolved ABX Reporting Has patient been on IV antibiotics over the past 48 hours?: Yes Current Medications - Current Medications Current Medications: Active Medications Acetaminophen (Acetaminophen 325 Mg Tablet) 650 mg PO Q4HR PRN PRN Reason: Pain 1 to 4 Aspirin (Aspirin 325 Mg Tablet) 325 mg PO BIDWM [facility] Last Admin: 11/08/20 17:00 Dose: 325 mg Documented by: Atorvastatin Calcium (Atorvastatin 40 Mg Tablet) 80 mg PO QPM [facility] Last Admin: 11/07/20 21:10 Dose: 80 mg Documented by: Diltiazem HCl (Diltiazem Cd 120 Mg Capsule) 120 mg PO DAILY [facility] Last Admin: 11/08/20 08:45 Dose: 120 mg Documented by: Duloxetine HCl (Duloxetine 30 Mg Capsule) 60 mg PO DAILY [facility] Last Admin: 11/08/20 08:45 Dose: 60 mg Documented by: Gabapentin (Gabapentin 300 Mg Capsule) 600 mg PO HS [facility] Last Admin: 11/07/20 21:10 Dose: 600 mg Documented by: Sodium Chloride (Normal Saline 0.9%) 1,000 mls @ 100 mls/hr IV .Q10H [facility] Last Admin: 11/08/20 12:37 Dose: 100 mls/hr Documented by: Ceftriaxone Sodium 2 gm/ (Sodium Chloride) 100 mls @ 200 mls/hr IV DAILY [facility] Last Infusion: 11/08/20 09:41 Dose: Infused Documented by: Methadone HCl (Methadone 5 Mg Tablet) 5 mg PO BID [facility] Last Admin: 11/08/20 08:47 Dose: 5 mg Documented by: Oxycodone HCl (Oxycodone 5 Mg Tablet) 5 mg PO Q4HR PRN PRN Reason: Pain 5 to 7 Saccharomyces Boulardii (Saccharomyces Boulardii 250 Mg Capsule) 250 mg PO BIDWM [facility] Sodium Chloride (Sodium Chloride Flush 0.9% 10 Ml Syringe) 10 ml IVP PRN PRN PRN Reason: NEEDED PER PROVIDER ORDERS Sodium Chloride (Sodium Chloride Flush 0.9% 10 Ml Syringe) 10 ml IVP 0100,0900,1700 [facility] Last Admin: 11/08/20 17:00 Dose: Not Given Documented by: Temazepam (Temazepam 15 Mg Capsule) 15 mg PO QPM PRN PRN Reason: Insomnia Last Admin: 11/07/20 21:10 Dose: 15 mg Documented by: DULoxetine [Cymbalta] 60 mg PO DAILY 06/16/20 Diltiazem HCl [Diltiazem 12Hr ER] 1 tab PO DAILY 06/16/20 Gabapentin [Neurontin] 600 mg PO HS 06/16/20 Losartan/Hydrochlorothiazide [Hyzaar 100-12.5 Tablet] 1 tab PO DAILY 06/16/20 Methadone [Methadone Hcl] 5 mg PO BID 06/16/20 Rosuvastatin Calcium [Crestor] 40 mg PO DAILY 06/16/20 Spironolactone [Aldactone] 1 tab PO DAILY 06/16/20 clonazePAM [Clonazepam] 0.5 mg PO BID 06/16/20
[2020-11-08] MEDS ORDERED: INSULIN ASPART 300 UNIT/3 ML PEN SUBQ SCH (17:00)
[2020-11-08] MEDS: SACCHAROMYCES BOULARDII 250 MG CAPSULE PO SCH (19:19)
[2020-11-08] MEDS ORDERED: CARBOXYMETHYLCELLULOSE OPHTH DROPS EACHEYE PRN (19:36)
[2020-11-08] MEDS: ATORVASTATIN 40 MG TABLET PO SCH (21:26)
[2020-11-08] MEDS: TEMAZEPAM 15 MG CAPSULE PO PRN (21:26)
[2020-11-08] MEDS: GABAPENTIN 300 MG CAPSULE PO SCH (21:26)
[2020-11-09 05:37] LABS: CALCIUM 8.2 mg/dL (8.5-10.3); POTASSIUM 3.4 mmol/L (3.5-5.0)
[2020-11-09 05:39] LABS: BASOPHILS % (AUTO) 0.4 %; EOSINOPHILS # (AUTO) 0.1 10^3/uL (0.0-0.7); EOSINOPHILS % (AUTO) 0.6 %; HCT - HEMATOCRIT 29.3 % (37.0-47.0); HGB - HEMOGLOBIN 9.4 g/dL (12.0-16.0); LYMPHOCYTES # (AUTO) 4.1 10^3/uL (1.5-3.5); LYMPHOCYTES % (AUTO) 39.3 %; MEAN CORPUSCULAR HEMOGLOBIN 28.5 pg (27.0-31.0); MEAN CORPUSCULAR HGB CONC 32.1 g/dL (32.0-36.0); MEAN CORPUSCULAR VOLUME 88.8 fL (81.0-99.0); MEAN PLATELET VOLUME 9.9 fL (7.9-10.8); MONOCYTES # (AUTO) 0.9 10^3/uL (0.0-1.0); MONOCYTES % (AUTO) 8.2 %; NEUTROPHILS # (AUTO) 5.4 10^3/uL (1.5-6.6); NEUTROPHILS % (AUTO) 50.6 %; PLT - PLATELET COUNT 203 10^3/uL (130-450); RED CELL DISTRIBUTION WIDTH 15.1 % (12.0-15.0); WHITE BLOOD COUNT 10.5 x10^3/uL (4.8-10.8)
[2020-11-09] MEDS ORDERED: clonazePAM 0.5 MG TABLET PO PRN (08:06)
[2020-11-09] MEDS ORDERED: POTASSIUM CHLORIDE 20 MEQ TABLET PO ONE (08:08)
[2020-11-09 08:28] LABS: ABSOLUTE RETICS # AUTO 0.073 10^6/uL (0.020-0.110); RED BLOOD COUNT 3.26 10^6/uL (4.20-5.40); RETICULOCYTE COUNT % (AUTO) 2.24 % (0.5-2.3)
[2020-11-09 08:55] LABS: % IRON SATURATION 9 % (20-50); IRON 22 ug/dL (28-170); TOTAL IRON BINDING CAPACITY 256 ug/dL (250-450); TRANSFERRIN 183 mg/dL (192-382)
[2020-11-09 09:03] LABS: FERRITIN 65.1 ng/mL (11.0-306.8)
[2020-11-09] MEDS: ASPIRIN 325 MG TABLET PO SCH (09:03)
[2020-11-09] MEDS: METHADONE 5 MG TABLET PO SCH (09:03)
[2020-11-09] MEDS: diltiaZEM CD 120 MG CAPSULE PO SCH (09:03)
[2020-11-09] MEDS: cefTRIAXone 2 GM in SODIUM CHLORIDE 0.9% MINIBAG 100 ML IV SCH (09:04)
[2020-11-09] MEDS: DULoxetine 30 MG CAPSULE PO SCH (09:04)
[2020-11-09] MEDS: SACCHAROMYCES BOULARDII 250 MG CAPSULE PO SCH (09:04)
[2020-11-09] MEDS: SODIUM CHLORIDE FLUSH 0.9% 10 ML SYRINGE IVP SCH (09:05)
[2020-11-09] MEDS ORDERED: FERROUS SULFATE 325 MG TABLET PO SCH (11:06)
--- NOTE | 2020-11-09 11:10 | Discharge Plan ---
Discharge Plan Problem Reviewed?: Yes Disposition: Home, Self Care Condition: Stable Prescriptions: cefUROXime axetiL [Ceftin] 500 mg PO Q12H 10 Days #40 tablet Ferrous Sulfate [Feosol] 325 mg PO DAILY #30 tablet Saccharomyces Boulardii [Florastor] 250 mg PO BIDWM 10 Days #20 cap Diet: Diabetic Activity Restrictions: Activity as Tolerated Shower Restrictions: No (fall precaution) Instruction Topics: UTI, ED Bacteremia Rule Out, Diabetes Insulin Pump Ch, Dehydration Health Concerns: you were found to have UTI and bacteremia infection. Antibiotics is prescribed for you to finish the treatment course, and you may keep hydration at home as well. Your A1C is 10, your diabetes is not well controlled. advise you closely followup with your web development manager for you to manage your diabetes and your insulin pump. Plan of Treatment: as the above Care Goals: stabilization and improvement of your medical conditions. Assessment: discussed the care plan with you, answered your questions, you understood. Additional Instructions or Follow Up instructions: You may followup with your PCP in one to two weeks, followup with your web development manager as out-pt. Should your symptoms return or worsen, you may present ER or call 911 for help. No Smoking: If you smoke, Please STOP! Call for help.
--- NOTE | 2020-11-09 11:15 | PHARMACY PROGRESS NOTE ---
- Best Possible Medication History Admit Date and Time: 11/07/20 1602 Processed by: Pharmacy Medication History completed: Yes Patient Interview: Completed Secondary Source(s): Physician records, Pharmacy records [facility] had records for patient under maiden name. List updated. As the person ultimately responsible for medication therapy, providers are able to order a medication from an existing home medication list in [facility] via the "Reconcile Routine" prior to Confirmation of that medication by pharmacy retail support specialist. Such practice is discouraged except when the physician, in their clinical judgment, deems that a medical need exists for a medication without regard to previous use.
--- NOTE | 2020-11-09 11:32 | DISCHARGE SUMMARY ---
Discharge Summary Admit Date: 11/07/20 Discharge Date: 11/09/20 Discharging Provider: Jacek Kumar Condition at Discharge: Stable Discharge Disposition: 01 Home, Self Care Discharge Facility Name: home - DIAGNOSES Discharge Diagnoses with Status of Each Condition: (1) Bacteremia Blood culture show 1 tubal with grain negative rods of klebsiella pneumoniae. A fter treatment, repeated blood culture show negative For bacteremia. Patient has no fever, WBC become normal range. Patient Became hemodynamically stable after treatment. Patient was prescribed antibiotics to finish the treatment course (2)sepsis pt has Tachycardia, elevated WBC, confused, UTI infection and OTONIEL at the admission. After treatment, patient above medical problem was resolved or stable (3) UTI (urinary tract infection) UA culture show positive for klebsiella pneumoniae. Patient was treated with intravenous antibiotics in hospital, patient was discharged with oral antibiotics To finish the treatment course (4) Encephalopathy Resolved. Patient is alert and orientated +4 (5) Type 2 diabetes mellitus RN nurse educator put new insulin into the pump, And pump is started. pt was hold for sliding-scale right, her Glucose was controlled, patient may follow-up with her PCP and channel specialist continue management of Her diabetes (6) Acute on chronic renal insufficiency Significantly Improved, Creatinine become 2.0, continue follow-up with her PCP for management - HPI History of Present Illness: refer from Dr. Spaulding's HPI on 11/07/20 Patient is a 70-year-old woman with past medical history of type 2 diabetes mellitus, diabetic peripheral neuropathy with chronic pain on methadone, hypertension, hyperlipidemia, CKD who presented to the emergency room after she started noticing symptoms of fatigue, mild confusion, and was having trouble with her insulin pump and thinks her blood sugar was going to low. She states that her insulin pump broke a few days ago and she is not been able to give herself supplemental subcutaneous insulin and thought her blood sugar was actually going "out of whack". She presented to the emergency room for further evaluation.Her labs were suggestive of hyponatremia with a sodium of 129, BUN/creatinine elevation of 39 and 2.6 respectively, And initial blood glucose of 332. Additionally she was complaining of some recent dysuria and her WBC showed 17,000 and urinalysis was highly suggestive of UTI. She denied any flank pain, chest pain, shortness of breath, nausea, vomiting, anorexia, or other systemic complaints. Given the hyperglycemia, positive UTI, and difficulty with managing her insulin, observation bed was requested for further management and for diabetic education to help the patient get back on track with her insulin. - HOSPITAL COURSE Hospital Course: Patient was admitted for weakness and confused,Malfunction of her insulin pump. Patient was found to have UTI, patient was found to have sepsis in the admission . Patient blood cultures show 1 tubal with a positive bacteremia. Patient also was found to have OTONIEL. Patient was treated with intravenous antibiotics, Intravenous IV fluids. Diabetic health education specialist resume function of patient insulin pump. Appreciation to Life Enrichment Director RN. After patient was treated in the hospital, patient become alert and orientated +4. Patient has no fever, repeated blood culture is negative for bacteremia, WBC become normal range, patient has no more tachycardia, patient creatinine return to patient baseline. Patient was discharged at hemodynamically stable condition - ALLERGIES Allergies/Adverse Reactions: Allergies Allergy/AdvReac Type Severity Reaction Status Date / Time No Known Drug Allergies Allergy Verified 11/07/20 12:13 - MEDICATIONS Home Medications: Ambulatory Orders Medication Instructions Recorded Confirmed DULoxetine [Cymbalta] 60 mg PO DAILY 06/16/20 11/09/20 Diltiazem HCl [Diltiazem 12Hr ER] 1 tab PO DAILY 06/16/20 11/09/20 Gabapentin [Neurontin] 600 mg PO HS 06/16/20 11/09/20 Losartan/Hydrochlorothiazide 1 tab PO DAILY 06/16/20 11/09/20 [Hyzaar 100-12.5 Tablet] Methadone [Methadone Hcl] 5 mg PO BID 06/16/20 11/09/20 Rosuvastatin Calcium [Crestor] 40 mg PO DAILY 06/16/20 11/09/20 Spironolactone [Aldactone] 1 tab PO DAILY 06/16/20 11/09/20 clonazePAM [Clonazepam] 0.5 mg PO BID PRN 06/16/20 11/09/20 Doxepin Oral Soln [SINEquan ORAL 3 mg PO QPM PRN 11/09/20 11/09/20 SOLN] Ferrous Sulfate [Feosol] 325 mg PO DAILY #30 tablet 11/09/20 Insulin Lispro 0 units SQ .CONTINUOUS 11/09/20 11/09/20 Progesterone,Micronized 100 mg PO DAILY 11/09/20 11/09/20 [Prometrium] Saccharomyces Boulardii [Florastor] 250 mg PO BIDWM 10 Days #20 cap 11/09/20 cefUROXime axetiL [Ceftin] 500 mg PO Q12H 10 Days #40 tablet 11/09/20 - PHYSICAL EXAM AT DISCHARGE General Appearance: positive: No acute distress, Alert. negative: Lethargic Eyes Bilateral: positive: Normal inspection, PERRL, No lid inflammation ENT: positive: ENT inspection nml, No signs of dehydration. negative: Purulent nasal drainage Neck: positive: Nml inspection, Trachea midline. negative: Thyromegaly, Tracheal deviation Respiratory: positive: Chest non-tender, No respiratory distress. negative: Wheezes, Rales Cardiovascular: positive: Regular rate & rhythm, No murmur. negative: Tachycardia, Bradycardia, Systolic murmur, Diastolic murmur Peripheral Pulses: positive: 2+ Abdomen: positive: Non-tender, Nml bowel sounds, No distention. negative: Tenderness Back: positive: Nml inspection Skin: positive: Color nml, Warm, Dry. negative: Cyanosis Extremities: positive: Non-tender, Full ROM, Nml appearance. negative: Calf tenderness Neurologic/Psychiatric: positive: Oriented x3, Motor nml, Sensation nml, Mood/affect nml. negative: Weakness, Sensory loss, Facial droop, Slurred/abnml speech, Depressed mood/affect - LABS Result Diagrams: 11/09/20 05:00 11/09/20 05:00 - SEPSIS Current Stage of Sepsis: Resolved - FOLLOW UP Follow Up: you were found to have UTI and bacteremia infection. Antibiotics is prescribed for you to finish the treatment course, and you may keep hydration at home as well. Your A1C is 10, your diabetes is not well controlled. advise you closely followup with your channel specialist for you to manage your diabetes and your insulin pump. You may followup with your PCP in one to two weeks, followup with your channel specialist as out-pt. Should your symptoms return or worsen, you may present ER or call 911 for help. - TIME SPENT Time Spent in Discharge (Minutes): 30
[2020-11-09 12:27] VITALS: BP 120/52
== END 2020-11-09 12:42 | disposition home or self-care (01) ==
LOC: ED 12:03 → MS2 16:02
PROVIDERS: ADMIT Family Medicine Sports Medicine; ATTEND Nurse Practitioner Gerontology
DX: A41.59 Other Gram-negative sepsis (principal); N30.00 Acute cystitis without hematuria; R65.20 Severe sepsis without septic shock; N17.9 Acute kidney failure, unspecified; G93.41 Metabolic encephalopathy; E11.22 Type 2 diabetes mellitus with diabetic chronic kidney disease; E11.65 Type 2 diabetes mellitus with hyperglycemia; I12.9 Hypertensive chronic kidney disease with stage 1 through stage 4 chronic kidney disease, or unspecified chronic kidney disease; N18.9 Chronic kidney disease, unspecified; Z96.41 Presence of insulin pump (external) (internal); E11.42 Type 2 diabetes mellitus with diabetic polyneuropathy; Z20.822 Contact with and (suspected) exposure to COVID-19; G89.29 Other chronic pain; Z79.891 Long term (current) use of opiate analgesic; E78.5 Hyperlipidemia, unspecified; E11.51 Type 2 diabetes mellitus with diabetic peripheral angiopathy without gangrene; Z87.891 Personal history of nicotine dependence; T85.614A Breakdown (mechanical) of insulin pump, initial encounter; T38.3X6A Underdosing of insulin and oral hypoglycemic [antidiabetic] drugs, initial encounter; E86.0 Dehydration; F51.04 Psychophysiologic insomnia; F41.9 Anxiety disorder, unspecified; Z79.899 Other long term (current) drug therapy
CPT/HCPCS: 36415; 80048; 80053; 81001; 82009; 82607; 82728; 82803; 83036; 83540; 83605; 83615; 83690; 84466; 85025; 85045; 87040; 87077; 87086; 87150; 87181; 87631; 96365; 96366; 96376; 99285; A9270; G0378; J1815; 0202U; 81003

== ENCOUNTER 2021-05-12 11:11 | Outpatient (CLI) | payer MEDICARE | END 2021-05-12 11:12 | disposition critical access hospital (66) | LOC: EMS 11:11 | DX: R53.81 Other malaise (principal); E11.40 Type 2 diabetes mellitus with diabetic neuropathy, unspecified; F41.9 Anxiety disorder, unspecified | CPT/HCPCS: A0425; A0429 ==